=== PATIENT | male | born 1945 | race Caucasian/White ===

== ENCOUNTER 2020-08-14 08:42 | Outpatient (REF) | payer MEDICARE, SELFPAY ==
[2020-08-14 10:07] LABS: Anion Gap 14 (12-20); Blood Urea Nitrogen 17 mg/dL (9-16); Carbon Dioxide 24 mmol/L (22-29); Chloride 105 mmol/L (96-108); Cholesterol 228 mg/dL; Estimated Glomerular Filt Rate 48; Glucose Fasting 128 mg/dL (60-99); HDL Cholesterol 36 mg/dL; LDL Cholesterol Calculated 152 mg/dl; Potassium 4.4 mmol/L (3.3-5.1); Sodium 139 mmol/L (135-145); Triglycerides 203 mg/dL
== END 2020-08-14 08:43 | disposition home or self-care (01) ==
LOC: HO.LAB 08:42
PROVIDERS: PCP Family Medicine; Visit Provider Family Medicine
DX: I10 Essential (primary) hypertension (principal); E78.00 Pure hypercholesterolemia, unspecified; Z82.49 Family history of ischemic heart disease and other diseases of the circulatory system
CPT/HCPCS: 36415; 80051; 80061; 82565; 82947; 84520

== ENCOUNTER 2020-09-04 10:16 | Outpatient (REF) | payer MEDICARE, SELFPAY ==
[2020-09-07 17:12] LABS: DHEA Sulfate 64 mcg/dL (5-253)
[2020-09-09 22:26] LABS: Estradiol Ultra Sensitive 41 pg/mL (< OR = 29)
[2020-09-10 19:50] LABS: Testosterone, Free 90.6 pg/mL (30.0-135.0); Testosterone, Total 530 ng/dL (250-1100)
[2020-09-13 00:26] LABS: Dihydrotestosterone 65 ng/dL (12-65)
== END 2020-09-04 10:17 | disposition home or self-care (01) ==
LOC: HO.LAB 10:16
PROVIDERS: PCP Family Medicine; Visit Provider Physician Assistant
DX: E29.1 Testicular hypofunction (principal)
CPT/HCPCS: 36415; 82627; 82642; 82670; 82681; 84402; 84403

== ENCOUNTER 2023-01-29 09:33 | Outpatient (REF) | payer OTHER, SELFPAY ==
[2023-01-29 14:39] VITALS: BMI 35.4
[2023-01-29 14:40] VITALS: BP 173/76; PULSE 58; RESP 16; TEMP 36.2; O2SAT 96
== END 2023-01-29 09:34 | disposition home or self-care (01) ==
LOC: HO.MS 09:33
PROVIDERS: PCP Internal Medicine; Visit Provider Ophthalmology
PROC: (CPT 66761; principal; 2023-01-29 13:00)
DX: H40.031 Anatomical narrow angle, right eye (principal)
CPT/HCPCS: 66761

== ENCOUNTER 2023-06-18 08:46 | Day surgery (SDC) | payer OTHER, SELFPAY ==
--- NOTE | 2023-06-14 14:48 | P.CONAN_ITS ---
Documented by User: Erin Monson NP 06/15/23 09:10 HPI - Anesthesia Eval Consult details Narrative: 77yo M for Right Cataract Extraction IOL Insertion No previous cataract on record [facility] Past Medical History Medical History (Updated 06/15/23 @ 09:13 by Kirsten Perez, RN) Chronic kidney disease Chronic sinus bradycardia Cataract Retinopathy Glaucoma, narrow-angle Hypertension Hypercholesterolemia Diabetes mellitus Social History Social History Patient Tobacco Use Status: Former Tobacco user Use of substances other than those prescribed or required for medical reasons: No Are you DNR?: No Advance Directives: No Advance Directives Information Provided: Yes Meds Allergies Allergy/AdvReac Type Severity Reaction Status Date / Time No Known Allergies Allergy Verified 06/14/23 14:49 Home Medications ?Medication ?Instructions ?Recorded ?Confirmed ?Last Taken ?Type amlodipine 10 mg tablet 10 mg PO DAILY 06/14/23 06/14/23 Unknown History doxazosin 4 mg tablet 4 mg PO DAILY 06/14/23 06/14/23 Unknown History finasteride 5 mg tablet 5 mg PO DAILY 06/14/23 06/14/23 Unknown History lisinopril 20 mg tablet 20 mg PO DAILY 06/14/23 06/14/23 Unknown History metoprolol succinate 100 mg 100 mg PO DAILY 06/14/23 06/14/23 Unknown History tablet,extended release 24 hr Assessment and Plan Assessment Anesthesia Assessment: Chart Reviewed Documented by User: Otis Webber MD 06/18/23 11:21 [facility] Past Medical History Medical History (Updated 06/15/23 @ 09:13 by Kirsten Perez, GREGORY) Chronic kidney disease Chronic sinus bradycardia Cataract Retinopathy Glaucoma, narrow-angle Hypertension Hypercholesterolemia Diabetes mellitus Family History Family history of problems with anesthesia: No Surgical History History of Problems with Anesthesia: No Social History Social History Patient Tobacco Use Status: Former Tobacco user Use of substances other than those prescribed or required for medical reasons: No Are you DNR?: No Advance Directives: No Advance Directives Information Provided: Yes Meds Allergies Allergy/AdvReac Type Severity Reaction Status Date / Time No Known Allergies Allergy Verified 06/14/23 14:49 Home Medications ?Medication ?Instructions ?Recorded ?Confirmed ?Last Taken ?Type amlodipine 10 mg tablet 10 mg PO DAILY 06/14/23 06/14/23 Unknown History doxazosin 4 mg tablet 4 mg PO DAILY 06/14/23 06/14/23 Unknown History finasteride 5 mg tablet 5 mg PO DAILY 06/14/23 06/14/23 Unknown History lisinopril 20 mg tablet 20 mg PO DAILY 06/14/23 06/14/23 Unknown History metoprolol succinate 100 mg 100 mg PO DAILY 06/14/23 06/14/23 Unknown History tablet,extended release 24 hr Exam Airway Mallampati Class: II TM Dist: >3cm Neck ROM: Full Loose/Missing/Broken Teeth: Yes (4) Heart: rrr Lungs: cta Assessment and Plan Final Anesthetic Review Family History of Problems with Anesthesia: No History of Problems with Anesthesia: No NPO: Yes ASA Class: II Final Preanesthetic Review: No Changes in Pt Med Stat, Meds/Allgs Chart Reviewed, Consent Obtained/Reviewed and Anes Risks/Benef Reviewed Patient Risk: Intermediate Procedure Risk: Low Anesthetic Plan Anesthetic Plan: MAC: Disposition: Standard PACU
[2023-06-18 10:47] VITALS: BMI 37.2
[2023-06-18 10:54] VITALS: BMI 37.2
[2023-06-18 11:13] VITALS: BP 162/62; PULSE 50; RESP 18; TEMP 36.2; O2SAT 95
--- NOTE | 2023-06-18 11:27 | MHC.SHP ---
Pre-Procedural Eval Section A - 24 Hr Update-Section A only Date of Service: 06/18/23 The patient is an INPATIENT: No Changes since office visit: No Cold of Flu in the past 2 weeks, No New Medical Problems, No Changes in Medication and No Patient answered all questions The patient has been examined within 24 hours of the surgical procedure. The History & Physical has been completed within 30 days and I have reviewed it.: Yes Section B - Complete if H&P > 30 days Chief Complaint: Age-related nuclear cataract, right eye Allergies: Allergies Allergy/AdvReac Type Severity Reaction Status Date / Time No Known Allergies Allergy Verified 06/14/23 14:49 Plan Diagnosis/Plan: Unchanged I have reviewed the history and physical and performed a pertinent physical examination on my patient. No changes have occurred unless specified. Time Spent With Patient Time: Total time managing care of this patient today ____ minutes.
[2023-06-18] MEDS: Lactated Ringers 500 ML 50 ML IV (11:42)
[2023-06-18] MEDS: Ketorolac Tromethamine 0.5% Op 10 ML DROPS 1 DROP EYE-RIGHT ×3 (11:43→11:48)
[2023-06-18] MEDS: Cyclopentolate 1 % Ophth Sol 2 ML DRPBTL 1 DROP EYE-RIGHT ×2 (11:43→11:46)
[2023-06-18] MEDS: Tetracaine HCl/PF 0.5% Oph Sol 4 ML DROPS 1 DROP EYE-RIGHT (11:43)
[2023-06-18] MEDS: Phenylephrine HCL 2.5% Oph SoL 2 ML BOTTLE 1 DROP EYE-RIGHT ×3 (11:43→11:48)
[2023-06-18] MEDS: Tropicamide 1 % Ophth Sol 3 ML BTL 1 DROP EYE-RIGHT ×3 (11:46→11:49)
--- NOTE | 2023-06-18 11:58 | P.PCNO_ITS ---
Ophthalmology Procedure Procedure Date of Service: 06/18/23 Ophthalmology Viscoelastic: Healon Duet Dual Pack Pro Ophthalmology Lenses: IOL Acrysof MP - MA60AC (23) Procedure Notes: PREOPERATIVE DIAGNOSIS: Decreased visual acuity right eye secondary to cataract POSTOPERATIVE DIAGNOSIS: Same PROCEDURE: Right cataract extraction with intraocular lens insertion SURGEON: Myron Howell M.D. ANESTHESIA: Topical/MAC ESTIMATED BLOOD LOSS: None COMPLICATIONS: None After obtaining informed consent, the patient was brought to the operating room suite and placed in the supine position. After adequate sedation per anesthesia, topical drops of Tetracaine were given to the right eye. The eye was then prepped and draped in the usual sterile fashion. The operating room microscope was then positioned over the operative eye and a lid speculum placed. A paracentesis was created. Viscoelastic was then instilled into the anterior chamber. A three plane incision was then created temporally, utilizing a 2.85 mm keratome. Capsulotomy forceps were then utilized to create a circular tear capsulotomy. Hydrodissection and hydrodelineation were carried out until adequate mobilization of the nucleus occurred. Phacoemulsification was then utilized to remove the dense central nucl eus followed by removal of the cortical material utilizing the automated aspiration irrigation unit. Viscoelastic was instilled into the posterior capsular bag followed by placement of a posterior chamber intraocular lens without difficulty. The residual Viscoelastic was then removed utilizing the automated IA machine. The wound was checked and found to be watertight. The patient tolerated the procedure well and the lid speculum was removed. Intracameral injection of Vigamox 0.1 mL followed by a subtenon injection of Kenalog-40 0.2 mL were administered. The patient will be seen in the a.m.
[2023-06-18 12:52] VITALS: BP 146/63; PULSE 49; RESP 17; TEMP 36.3; O2SAT 95
== END 2023-06-18 12:55 | disposition home or self-care (01) ==
PROVIDERS: PCP Internal Medicine; Visit Provider Ophthalmology
PROC: (CPT 66985; principal; 2023-06-18 11:20)
DX: H25.11 Age-related nuclear cataract, right eye (principal); H52.4 Presbyopia; H40.011 Open angle with borderline findings, low risk, right eye; H35.033 Hypertensive retinopathy, bilateral; H18.413 Arcus senilis, bilateral; I12.9 Hypertensive chronic kidney disease with stage 1 through stage 4 chronic kidney disease, or unspecified chronic kidney disease; E11.22 Type 2 diabetes mellitus with diabetic chronic kidney disease; N18.9 Chronic kidney disease, unspecified; E78.00 Pure hypercholesterolemia, unspecified; Z79.899 Other long term (current) drug therapy; Z87.891 Personal history of nicotine dependence
CPT/HCPCS: 66984; J2250; J3010; J3301; V2630

== ENCOUNTER 2023-07-02 09:56 | Day surgery (SDC) | payer OTHER, SELFPAY ==
[2023-06-26 13:02] VITALS: BMI 37.2
--- NOTE | 2023-06-29 09:51 | HO.ANESPROP2 ---
Documented by User: Erin Monson NP 06/29/23 09:52 HPI - Anesthesia Eval Consult details Narrative: 77yo M for Left Cataract Extraction IOL Insertion PCP cleared Right eye 06/18/23: Fent 50, Midaz 2 [facility] Past Medical History Medical History (Updated 06/15/23 @ 09:13 by Kirsten Perez, RN) Chronic kidney disease Chronic sinus bradycardia Cataract Retinopathy Glaucoma, narrow-angle Hypertension Hypercholesterolemia Diabetes mellitus Family History Family history of problems with anesthesia: No Surgical History History of Problems with Anesthesia: No Social History Social History Patient Tobacco Use Status: Former Tobacco user Use of substances other than those prescribed or required for medical reasons: Yes Are you DNR?: No Advance Directives: No Advance Directives Information Provided: Yes Meds Allergies Allergy/AdvReac Type Severity Reaction Status Date / Time No Known Allergies Allergy Verified 06/14/23 14:49 Home Medications ?Medication ?Instructions ?Recorded ?Confirmed ?Last Taken ?Type amlodipine 10 mg tablet 10 mg PO DAILY 06/14/23 06/14/23 Unknown History doxazosin 4 mg tablet 4 mg PO DAILY 06/14/23 06/14/23 Unknown History finasteride 5 mg tablet 5 mg PO DAILY 06/14/23 06/14/23 Unknown History lisinopril 20 mg tablet 20 mg PO DAILY 06/14/23 06/14/23 Unknown History metoprolol succinate 100 mg 100 mg PO DAILY 06/14/23 06/14/23 Unknown History tablet,extended release 24 hr Exam Height,Weight and Vital Signs: Height 5 ft 8 in Weight 111.13 kg Assessment and Plan Assessment Anesthesia Assessment: Chart Reviewed Final Anesthetic Review Family History of Problems with Anesthesia: No History of Problems with Anesthesia: No Documented by User: Rashida Welsh MD 07/02/23 10:20 [facility] Past Medical History Medical History (Updated 06/15/23 @ 09:13 by Kirsten Perez RN) Chronic kidney disease Chronic sinus bradycardia Cataract Retinopathy Glaucoma, narrow-angle Hypertension Hypercholesterolemia Diabetes mellitus Social History Social History Patient Tobacco Use Status: Former Tobacco user Use of substances other than those prescribed or required for medical reasons: Yes Are you DNR?: No Advance Directives: No Advance Directives Information Provided: Yes Meds Allergies Allergy/AdvReac Type Severity Reaction Status Date / Time No Known Allergies Allergy Verified 06/14/23 14:49 Home Medications ?Medication ?Instructions ?Recorded ?Confirmed ?Last Taken ?Type amlodipine 10 mg tablet 10 mg PO DAILY 06/14/23 06/14/23 Unknown History doxazosin 4 mg tablet 4 mg PO DAILY 06/14/23 06/14/23 Unknown History finasteride 5 mg tablet 5 mg PO DAILY 06/14/23 06/14/23 Unknown History lisinopril 20 mg tablet 20 mg PO DAILY 06/14/23 06/14/23 Unknown History metoprolol succinate 100 mg 100 mg PO DAILY 06/14/23 06/14/23 Unknown History tablet,extended release 24 hr Exam Airway Mallampati Class: III TM Dist: >3cm Neck ROM: Full Heart: rrr Lungs: cta Assessment and Plan Assessment Anesthesia Assessment: Anesthesia Plan Discussed Final Anesthetic Review NPO: Yes ASA Class: II Final Preanesthetic Review: No Changes in Pt Med Stat, Meds/Allgs Chart Reviewed and Consent Obtained/Reviewed Patient Risk: Low Procedure Risk: Low Anesthetic Plan Anesthetic Plan: MAC: Disposition: Standard PACU
[2023-07-02 09:59] VITALS: BMI 37.2
[2023-07-02] MEDS: Tetracaine HCl/PF 0.5% Oph Sol 4 ML DROPS 1 DROP EYE-LEFT (10:10)
[2023-07-02] MEDS: Cyclopentolate 1 % Ophth Sol 2 ML DRPBTL 1 DROP EYE-LEFT ×3 (10:11→10:28)
[2023-07-02] MEDS: Tropicamide 1 % Ophth Sol 3 ML BTL 1 DROP EYE-LEFT ×3 (10:13→10:30)
[2023-07-02] MEDS: Ketorolac Tromethamine 0.5% Op 10 ML DROPS 1 DROP EYE-LEFT ×3 (10:15→10:32)
[2023-07-02] MEDS: Phenylephrine HCL 2.5% Oph SoL 2 ML BOTTLE 1 DROP EYE-LEFT ×3 (10:18→10:34)
[2023-07-02] MEDS: Lactated Ringers 500 ML 50 ML IV (10:19)
[2023-07-02 10:34] VITALS: BP 174/58; PULSE 51; RESP 16; TEMP 36.1; O2SAT 97
[2023-07-02 11:55] VITALS: BP 152/57; PULSE 48; RESP 12; TEMP 36.2; O2SAT 93
--- NOTE | 2023-07-04 08:26 | MHC.SHP ---
Pre-Procedural Eval Section A - 24 Hr Update-Section A only Date of Service: 07/02/23 The patient is an INPATIENT: No Changes since office visit: No Cold of Flu in the past 2 weeks, No New Medical Problems, No Changes in Medication and No Patient answered all questions The patient has been examined within 24 hours of the surgical procedure. The History & Physical has been completed within 30 days and I have reviewed it.: Yes Section B - Complete if H&P > 30 days Chief Complaint: Age-related nuclear cataract, left eye Allergies: Allergies Allergy/AdvReac Type Severity Reaction Status Date / Time No Known Allergies Allergy Verified 06/14/23 14:49 Plan Diagnosis/Plan: Unchanged I have reviewed the history and physical and performed a pertinent physical examination on my patient. No changes have occurred unless specified. Time Spent With Patient Time: Total time managing care of this patient today ____ minutes.
--- NOTE | 2023-07-04 08:27 | HO.PNOPHT ---
Ophthalmology Procedure Procedure Date of Service: 07/02/23 Ophthalmology Viscoelastic: Healon Duet Dual Pack Pro Ophthalmology Lenses: IOL Acrysof MP - MA60AC (23.5) Procedure Notes: PREOPERATIVE DIAGNOSIS: Decreased visual acuity left eye secondary to cataract POSTOPERATIVE DIAGNOSIS: Same PROCEDURE: Left cataract extraction with intraocular lens insertion SURGEON: Myron Howell M.D. ANESTHESIA: Topical/MAC ESTIMATED BLOOD LOSS: None COMPLICATIONS: None After obtaining informed consent, the patient was brought to the operation room suite and placed in the supine position. After adequate sedation per anesthesia, topical drops of Tetracaine were given to the left eye. The eye was then prepped and draped in the usual sterile fashion. The operating room microscope was then positioned over the operative eye and a lid speculum placed. A paracentesis was created. Viscoelastic was then instilled into the anterior chamber. A three plane incision was then created temporally, utilizing a 2.85 mm keratome. Capsulotomy forceps were then utilized to create a circular tear capsulotomy. Hydrodissection and hydrodelineation were carried out until adequate mobilization of the nucleus occurred. Phacoemulsification was then utilized to remove the dense central nucleus followed by removal of the cortical material utilizing the automated aspiration irrigation unit. Viscoat elastic was instilled into the posterior capsular bag followed by placement of a posterior chamber intraocular lens without difficulty. The residual Viscoat elastic was then removed utilizing the automated IA machine. The wound was check and found to be watertight. The patient tolerated the procedure well and the lid speculum was removed. Intracameral injection of Vigamox 0.1 mL followed by a subtenon injection of Kenalog-40 0.2 mL were administered. The patient will be seen in the a.m.
== END 2023-07-02 12:24 | disposition home or self-care (01) ==
PROVIDERS: PCP Internal Medicine; Visit Provider Ophthalmology
PROC: (CPT 66985; principal; 2023-07-02 07:30)
DX: H25.12 Age-related nuclear cataract, left eye (principal); H52.4 Presbyopia; H40.213 Acute angle-closure glaucoma, bilateral; H35.033 Hypertensive retinopathy, bilateral; H18.413 Arcus senilis, bilateral; E11.22 Type 2 diabetes mellitus with diabetic chronic kidney disease; I12.9 Hypertensive chronic kidney disease with stage 1 through stage 4 chronic kidney disease, or unspecified chronic kidney disease; N18.9 Chronic kidney disease, unspecified; E78.00 Pure hypercholesterolemia, unspecified; Z79.899 Other long term (current) drug therapy; Z87.891 Personal history of nicotine dependence
CPT/HCPCS: 66984; J2250; J3010; J3301; V2630

== ENCOUNTER 2024-06-04 13:56 | Outpatient (AMB) | payer MEDICARE, SELFPAY ==
--- NOTE | 2024-06-04 14:04 | MHC.PC.OV ---
Vital Signs 06/04/24 14:05 Height 5 ft 8 in Weight 223 lb BMI 33.9 BP 146/86 H Respiration 14 Pulse 60 Pulse Source Pulse Oximeter Temp 97.7 F Temp Source Temporal Artery Scan Pulse Oximetry (%) 97 Oxygen Delivery Method Room Air Intake Visit Reasons: 9 month follow up Out Of Town Collection Clerk Required: No Accompanied by: Self / Same As Patient Allergies Seasonal Allergies Allergy (Mild, Verified 06/04/24 14:53) Unknown Medication List - Last Reconciled 06/04/24 by Ginny Peter PA-C amlodipine 10 mg PO DAILY doxazosin 4 mg PO DAILY finasteride 5 mg PO DAILY lisinopril 20 mg PO DAILY metoprolol succinate ER 100 mg PO DAILY semaglutide (Ozempic) mg subcut Tobacco use date assessed: 06/04/24 Fall risk assessment: 2 + Falls in past year Last assessed Fall Risk: 06/04/24 Dental Screening Dental Screen Date: 06/04/24 Did you have a dental visit in the last 12 months?: Yes Did you have a dental problem in the last 6 months where you did not have access to dental care?: No Was dental information given to patient?: Patient has dentist HPI 9 month follow up HPI Details The patient is a 78-year-old male presenting for the establishment of care and evaluation of chronic medical conditions including chronic kidney disease. He was a patient of Dr. Louise who is currently retiring. He reports a longstanding condition of chronic kidney disease, attributing potential causes to herbal constipation remedies and intermittent diarrhea. Also, the patient has experienced chronic constipation, managed with magnesium, [place], and MiraLAX, which he worries might contribute to the kidney issues. 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 The patient has a known heart murmur, present since childhood, though previously undetected by some clinicians. Regarding metabolic management, Type 2 diabetes mellitus is listed, with medical control established via Ozempic; he is maintaining awareness of dietary influences on glycemic levels, noting a recent rise in unhealthy diet choices. The recent A1c is recorded at 5.8. Neuropathy is present, with the patient desiring non-pharmaceutical management strategies, expressing hesitance towards gabapentin due to its reputation and potential insulin-like paradoxes. The presence of earwax buildup was also significant, impacting auditory capabilities addressed during the visit. 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 - Substance use: History of smoking pot, cigarettes, and cigars. - Family status: for almost 37 years; mentioned having been twice before. - Nutritional habits: Recent decline in dietary behavior, acknowledged eating insufficiently. - Functional status: Experiences chronic constipation potentially impacting energy levels. [facility] Medical History (Updated 06/04/24 @ 16:14 by Ginny Peter PA-C) Cerumen impaction Low testosterone Chronic constipation Establishing care with new doctor, encounter for Heart murmur Chronic kidney disease Chronic sinus bradycardia Cataract Retinopathy Glaucoma, narrow-angle Hypertension Hypercholesterolemia Diabetes mellitus Surgical History History of colonoscopy Family History Mother No problems noted. Father Diabetes Cardiovascular disease Heart problem Social History Housing: House Alcohol intake: current Alcohol intake frequency: does not drink Patient Tobacco Use Status: Former Tobacco user service: No Current occupational status: retired Cognitive needs: No Hearing needs: No Vision needs: No Questionnaire PHQ-9 Over the last 2 weeks, how often have you been bothered by any of the following problems? 1. Little interest or pleasure in doing things: not at all 2. Feeling down, depressed, or hopeless: not at all 3. Trouble falling or staying asleep, or sleeping too much: not at all 4. Feeling tired or having little energy: not at all 5. Poor appetite or overeating: not at all 6. Feeling bad about yourself - or that you are a failure or have let yourself or your family down: not at all 7. Trouble concentrating on things, such as reading the newspaper or watching television: not at all 8. Moving or speaking so slowly that other people could have noticed. Or the opposite - being so fidgety or restless that you have been moving around a lot more than usual: not at all 9. Thoughts that you would be better off or of hurting yourself in some way: not at all Total score: 0 Depression Screening Interpretation: Negative Depression Screening Done: Yes 88167 - PHQ-9 Billing: Yes Source: Developed by Drs. Matthew Stein, Jennifer Davis, Deshawn Perrin and colleagues, with an educational monique from [employer]. Thrive Questionnaire Date Thrive assessed: 06/04/24 I am a: Patient What is your living situation today?: I have a steady place to live Within the past 12 months, did the food you bought not last and you didn't have the money to get more?: Never true Within the past 12 months, did you worry whether your food would run out before you got money to buy more?: Never true Do you have trouble paying for medicines?: No Do you have trouble getting transportation to medical appointments?: No Do you have trouble paying your heating and electricity bill?: No Do you have trouble taking care of your child, family member or friend?: No Do you have trouble with day-to-day activities such as bathing, preparing meals, shopping, managing finances, etc.?: No Are you currently unemployed and looking for a job?: No Are you interested in more education?: No Please select the resources that you would like help with: None THRIVE Score: 0 AUDIT C Alcohol Use Questionnaire (AUDIT-C) 1. How often do you have a drink containing alcohol?: Never 3. How often do you have six or more drinks on one occasion?: Never Total Score: 0 Score Reviewed/Action Taken: No CHELLY-7 AMB Questionnaire CHELYL-7 Date CHELLY - 7 assessed: 06/04/24 Feeling nervous, anxious, or on edge: 0 = Not at all Not being able to stop or control worryin = Not at all Worrying too much about different things: 0 = Not at all Trouble relaxin = Not at all Being so restless that it is hard to sit still: 0 = Not at all Becoming easily annoyed or irritable: 0 = Not at all Feeling afraid as if something awful might happen: 0 = Not at all Total CHELLY-7 score (0-4 normal; 5-9 mild; 10-14 moderate; 15-21 severe): 0 Source: Developed by Estiven Garciaet B.W. Ryan, Deshawn Perrin and colleagues, with an educational monique from [employer]. CHELLY-7 Assessment Billing CHELLY-7 Assessment Tool: CHELLY-7 Assessment 71359 Review of Systems Const Details: - Cardiovascular: Reports heart murmur; denies any new chest pain. - Gastrointestinal: Reports chronic constipation. - Musculoskeletal: Denies current issues. - Neurological: Reports neuropathy. - Endocrine: Reports type 2 diabetes mellitus; denies any recent hypoglycemia. - General/Constitutional: Denies significant weight loss or gain over a short period. - Ears, Nose, Mouth: Reports earwax impaction leading to hearing difficulty. Physical exam (Primary Care) Vital Signs: Last Vital Signs Temp 97.7 F 06/04/24 14:05 Pulse 60 06/04/24 14:05 Resp 14 06/04/24 14:05 BP 146/86 H 06/04/24 14:05 Pulse Ox 97 06/04/24 14:05 Oxygen Delivery Method Room Air 06/04/24 14:05 Care Plan Goal for BP management: <130/90 BMI result Body Mass Index 33.9 BMI Assessment/Plan discussion: High BMI High, discussed plan: lifestyle, weight reduction, dietary, physical activity and alcohol moderation Tobacco/Smoking Status: Tobacco use Status Tobacco use date assessed 06/04/24 06/04/24 14:08 Patient Tobacco Use Status Former Tobacco user 06/04/24 14:45 PHQ-9: PHQ-9 Score PHQ-9: Total score 0 06/04/24 14:53 Depression Screening Interpretation: Negative Thrive Assessment: Date of Thrive Assessment Date Thrive assessed 06/04/24 06/04/24 14:08 Const Other: Appearance: Alert. Oriented X3. No acute distress. Head: Normal external exam. Normocephalic. Atraumatic. Eyes: Pupils are equal, round, and reactive to light. Extraocular movements intact. Conjunctiva and sclera normal. Eyelids normal. Ears: External auditory canal normal. Tympanic membranes normal. Cerumen impaction bilaterally. Earwax professionally removed, ears completely clear status post cerumen removal. Throat: Pharynx normal. Uvula midline. Moist mucous membranes. Neck: Normal inspection. Neck supple. Full range of motion. No adenopathy. Thyroid Normal. No meningeal signs. No neck mass noted. Cardiovascular: Normal heart rate and rhythm. Heart sound normal. Heart murmur noted. Pulses normal throughout. Respiratory: No respiratory distress. Painless inspiration. Breath sounds normal. Lungs noted to be chronically wet. No wheezes/rales/rhonchi noted. Chest nontender. No accessory muscle usage noted or decreased air movement noted. Abdomen: Soft and nontender. Bowel sounds normal in all 4 quadrants. No distention noted. No organomegaly noted. No visible injury noted. Back: No costovertebral angle tenderness. Full range of motion noted. Skin: Skin warm and dry. Normal skin color. Normal skin turgor. No rashes/lesions/lacerations noted. Extremities: No lower extremity edema. Extremities exhibit normal range of motion. Extremities nontender. Neuro: Oriented X 3. No motor deficit. No sensory deficit. Reflexes normal. Office Procedures Cerumen Removal Details: Status post cerumen impaction patient tolerated procedure well. No complications. Tympanic membranes intact not perforated after procedure. Patient's hearing has improved significantly. From which ear canal was the cerumen removed: bilateral Removal: irrigation Notes: patient tolerated procedure well, no complications and ear canal clear [id number] Irrigation/Lavage Results AMB Hemoglobin A1c AMB Hemoglobin A1c 5.8 % Last Edit by KIMO Hamilton on 06/04/24 15:15 Results Reviewed Results Reviewed: - Labs: Last hemoglobin A1c recorded at 5.8; blood tests and hormone levels recommended. Coding Level of Care Code New Pt Level 4 (26022) Complex EM visit Add On G2211 Diagnoses Establishing care with new doctor, encounter for Z76.89 Diabetes mellitus E11.9 Hypercholesterolemia E78.00 Hypertension I10 Chronic sinus bradycardia R00.1 Chronic kidney disease N18.9 Heart murmur R01.1 Chronic constipation K59.09 Low testosterone R79.89 Cerumen impaction H61.20 CPT Codes Office Procedure - CPT: 19759-Jty Irrigation/Lavage ([id number]) Additional Codes PHQ-9 - 70809 - PHQ-9 Billing: Yes ([id number]) CHELLY-7 Assessment Billing - CHELLY-7 Assessment Tool: CHELLY-7 Assessment 39833 ([id number]) Assessment & Plan Assessment & Plan (1) Establishing care with new doctor, encounter for: Code(s): Z76.89 - Persons encountering health services in other specified circumstances Category: Medical (2) Diabetes mellitus: Code(s): E11.9 - Type 2 diabetes mellitus without complications Category: Medical Plan: Maint[facility] while considering dietary choices? impact on glycemic levels with regular A1c monitoring. Condition is chronic and stable continue to monitor. (3) Hypercholesterolemia: Code(s): E78.00 - Pure hypercholesterolemia, unspecified Category: Medical Plan: Controlled with diet and exercise. Condition is chronic and stable continue to monitor. (4) Hypertension: Code(s): I10 - Essential (primary) hypertension Category: Medical Plan: Blood pressure goal less than 130/90. Blood pressure elevated today. Will increase the patient's lisinopril from 20 mg to 40 mg daily. Patient to continue amlodipine 10 mg daily and metoprolol extended release 100 mg daily. Patient is return in 1 month with blood pressure diary to reassess blood pressure. Condition is chronic and stable continue to monitor. (5) Chronic sinus bradycardia: Code(s): R00.1 - Bradycardia, unspecified Category: Medical Plan: Patient noted to have heart murmur which has not been evaluated. Will refer to Cardiology. Condition is chronic and stable continue to monitor. (6) Chronic kidney disease: Code(s): N18.9 - Chronic kidney disease, unspecified Category: Medical Plan: Will repeat labs. Condition is chronic and stable continue to monitor. (7) Heart murmur: Code(s): R01.1 - Cardiac murmur, unspecified Category: Medical Plan: Patient noted to have heart murmur which has not been evaluated. Will refer to Cardiology. Condition is chronic and stable continue to monitor. (8) Chronic constipation: Code(s): K59.09 - Other constipation Category: Medical Plan: Patient uses [id number] medication. Condition is chronic and stable will continue to monitor. (9) Low testosterone: Code(s): R79.89 - Other specified abnormal findings of blood chemistry Category: Medical Plan: Patient utilizes testosterone daily. Will refer to Urology and order testosterone levels. Condition is chronic and stable continue to monitor. (10) Cerumen impaction: Code(s): H61.20 - Impacted cerumen, unspecified ear Category: Medical Plan: Efficacy of ear irrigation highlighted; implemented a regular peroxide maintenance routine to prevent recurrence. Condition has improved and is stable at this time will continue to monitor. Plan Plan Patient was informed and verbally consented to the use of an ambient scribe for clinic note documentation during this visit. 1. Chronic Kidney Disease Monitoring kidney function through blood work and maintaining awareness of dietary impacts was advised. Emphasis on efficient hydration and careful consideration of constipation treatment discussed. 2. Sinus Bradycardia Non-problematic sinus bradycardia, possibly attributed to historical athleticism, will remain under observation aligned with medication and activity levels. 3. Heart Murmur Significant heart murmur noted, necessitating cardiological referral for further evaluation and management, ensuring preventative monitoring and progress assessment. 4. Constipation Continued current home remedy usage with added dietary recommendations for fiber and fluids to alleviate symptoms without exacerbating kidney function. 5. Type 2 Diabetes Mellitus Maintained ongoing management through Ozempic while considering dietary choices? impact on glycemic levels with regular A1c monitoring. 6. Neuropathy Emphasized non-pharmaceutical strategies and potential physical therapy engagement while acknowledging ongoing symptom management needs. 7. Earwax Impaction Efficacy of ear irrigation highlighted; implemented a regular peroxide maintenance routine to prevent recurrence. During the consultation, we discussed the likelihood of attributing kidney function concerns to prolonged use of herbal constipation remedies like [place]. Metabolic management for diabetes alongside lifestyle modification was outlined. Sinus bradycardia's benign nature was noted in light of the patient's athletic history. The prominent heart murmur prompted necessary cardiology referral, serving as a preventive measure. Encouragement of hydration, dietary fiber, and manageable interventions provided, understanding patient preference against gabapentin for neuropathy. Earwax impaction was topically resolved, with at-home care guidance given to avert return incidences. Orders: Orders Complete Blood Count Auto Diff Today Z00.00 - Encounter for general adult medical examination without abnormal findings Comprehensive [place]. Panel Fast Today Z00.00 - Encounter for general adult medical examination without abnormal findings Hemoglobin A1c Today Z00.00 - Encounter for general adult medical examination without abnormal findings Liver Panel Today Z00.00 - Encounter for general adult medical examination without abnormal findings Magnesium Today Z00.00 - Encounter for general adult medical examination without abnormal findings Vitamin B12 and Folate Today Z00.00 - Encounter for general adult medical examination without abnormal findings Vitamin D 25-OH Total Today Z00.00 - Encounter for general adult medical examination without abnormal findings AMB Hemoglobin A1c Today E11.9 - Type 2 diabetes mellitus without complications C Reactive Protein Today Z00.00 - Encounter for general adult medical examination without abnormal findings Erythrocyte Sedimentation Rate Today Z00.00 - Encounter for general adult medical examination without abnormal findings Testosterone, Total Today Z00.00 - Encounter for general adult medical examination without abnormal findings Lipid Panel Today Z00.00 - Encounter for general adult medical examination without abnormal findings TSH reflex Free T4 Today Z00.00 - Encounter for general adult medical examination without abnormal findings PSA,Total (Free>4and<10) Today Z00.00 - Encounter for general adult medical examination without abnormal findings Dihydrotestosterone Today Z76.89 - Persons encountering health services in other specified circumstances DHEA Sulfate Today R79.89 - Other specified abnormal findings of blood chemistry, Z76.89 - Persons encountering health services in other specified circumstances Referrals Cardiology Referral E78.00 - Pure hypercholesterolemia, unspecified, I10 - Essential (primary) hypertension, R00.1 - Bradycardia, unspecified, R01.1 - Cardiac murmur, unspecified Urology Referral R79.89 - Other specified abnormal findings of blood chemistry Medications: Changed From lisinopril 20 mg PO DAILY To lisinopril 40 mg PO DAILY 90 tabs 1RF Patient Instructions: - Continue current diabetes and blood pressure medications as prescribed. - Maintain fiber intake and hydration levels to alleviate constipation. - Utilize peroxide weekly for ear care to prevent wax buildup. - Monitor your blood pressure daily, particularly two hours post-medication. - Attend appointments with referred specialists such as cardiology. - Schedule routine blood work, including A1c testing, at [place] or equivalent labs for accurate monitoring. - Consult emergency care if experiencing severe or unexpected symptoms.
[2024-06-04 14:05] VITALS: BP 146/86; PULSE 60; RESP 14; TEMP 36.5; O2SAT 97; BMI 33.9
== END 2024-06-04 15:30 | disposition home or self-care (01) ==
LOC: HO.HMCSH 13:56
PROVIDERS: PCP Internal Medicine; Visit Provider Physician Assistant Medical
DX: I12.9 Hypertensive chronic kidney disease with stage 1 through stage 4 chronic kidney disease, or unspecified chronic kidney disease (principal); E11.9 Type 2 diabetes mellitus without complications; N18.9 Chronic kidney disease, unspecified; Z76.89 Persons encountering health services in other specified circumstances; E78.00 Pure hypercholesterolemia, unspecified; H61.23 Impacted cerumen, bilateral; R00.1 Bradycardia, unspecified; R01.1 Cardiac murmur, unspecified; K59.09 Other constipation; R79.89 Other specified abnormal findings of blood chemistry

== ENCOUNTER → 2024-06-04 13:56 | Outpatient (BNVA) | payer MEDICARE, SELFPAY | PROVIDERS: PCP Internal Medicine; Visit Provider Physician Assistant Medical | DX: E11.22 Type 2 diabetes mellitus with diabetic chronic kidney disease (principal); E11.40 Type 2 diabetes mellitus with diabetic neuropathy, unspecified; N18.9 Chronic kidney disease, unspecified; E78.00 Pure hypercholesterolemia, unspecified; I12.9 Hypertensive chronic kidney disease with stage 1 through stage 4 chronic kidney disease, or unspecified chronic kidney disease; R00.1 Bradycardia, unspecified; R01.1 Cardiac murmur, unspecified; K59.09 Other constipation; R79.89 Other specified abnormal findings of blood chemistry; H61.23 Impacted cerumen, bilateral | CPT/HCPCS: 69209; 83036; 96127; 99202 ==

== ENCOUNTER 2024-06-09 09:45 | Outpatient (REF) | payer MEDICARE, SELFPAY ==
[2024-06-09 10:30] LABS: MANUAL DIFF FLAG NO
[2024-06-09 12:00] LABS: Estimated Average Glucose 120 mg/dL; Hemoglobin A1C 140.5296 umol/L; Hemoglobin A1c % 5.8 % (<6.0); Total Hemoglobin (HGBA1C) 3504.2137 umol/L
[2024-06-09 12:13] LABS: PSA,Total (Free>4and<10) 0.28 ng/mL (0.00-4.00)
[2024-06-09 12:17] LABS: Alanine Aminotransferase 18 U/L (0-40); Albumin Level 4.3 g/dL (3.5-5.0); Alkaline Phosphatase 75 U/L (39-117); Anion Gap 12 (12-20); Aspartate Amino Transferase 19 U/L (5-37); Bilirubin Direct 0.1 mg/dL (0.0-0.5); Bilirubin Total 0.3 mg/dL (0.0-1.0); Blood Urea Nitrogen 18 mg/dL (9-16); C Reactive Protein 0.74 mg/dL (< or = 0.50); Calcium 9.5 mg/dL (8.4-10.2); Carbon Dioxide 27 mmol/L (22-29); Chloride 104 mmol/L (96-108); Cholesterol 211 mg/dL (<200); Estimated Glomerular Filt Rate 51; Glucose Fasting 100 mg/dL (60-99); HDL Cholesterol 41 mg/dL (>40); LDL Cholesterol Calculated 133 mg/dL (<100); Magnesium 2.5 mg/dL (1.6-2.6); Potassium 4.5 mmol/L (3.3-5.1); Sodium 138 mmol/L (135-145); Total Protein 7.8 g/dL (6.5-8.0); Triglycerides 186 mg/dL (<150)
[2024-06-09 12:20] LABS: Basophils Percent Auto 0.5 % (0-2); Eosinophils Absolute Auto 0.1 X10*3/uL (0.0-0.4); Hematocrit 40.3 % (42.0-52.0); Hemoglobin 13.1 g/dl (14.0-18.0); Imm Gran Abs Auto 0.03 X10*3/uL (0.00-0.03); Imm Gran Pct Auto 0.4 % (0.0-0.4); Lymphocytes Absolute Auto 1.7 X10*3/uL (1.2-4.9); Lymphocytes Percent Auto 21.3 % (20-40); Mean Corpuscular HGB Conc 32.5 g/dl (31.0-36.0); Mean Corpuscular Volume 92.4 fL (80.0-98.0); Mean Platelet Volume 10.5 fL (9.4-12.4); Monocytes Absolute Auto 0.7 X10*3/uL (0.1-1.2); Monocytes Percent Auto 8.6 % (2-11); Neutrophils Absolute Auto 5.3 x10*3/uL (2.0-8.3); Neutrophils Percent Auto 68.2 % (45-73); Platelet Count 261 X10*3/uL (160-400); Red Blood Count 4.36 X10*6/uL (4.60-5.80); Red Cell Distribution Width 14.1 % (11.0-16.0); White Blood Count 7.8 X10*3/uL (4.8-10.8)
[2024-06-09 12:27] LABS: Folate 7.9 ng/mL (> or = 4.0); Vitamin B12 309 pg/mL (200-900)
[2024-06-09 12:35] LABS: TSH reflex Free T4 2.07 uIU/mL (0.32-4.0); Vitamin D 25-OH Total 102.3 ng/mL (>30)
[2024-06-09 13:05] LABS: Erythrocyte Sedimentation Rate 31 MM/HR (0-15)
[2024-06-10 03:23] LABS: DHEA Sulfate 87 mcg/dL (3-225)
[2024-06-12 13:44] LABS: Testosterone, Total 189 ng/dL (250-1100)
[2024-06-13 04:08] LABS: Dihydrotestosterone <5 ng/dL (12-65)
== END 2024-06-09 09:46 | disposition home or self-care (01) ==
LOC: HO.LAB 09:45
PROVIDERS: PCP Physician Assistant Medical; Visit Provider Physician Assistant Medical
DX: Z00.00 Encounter for general adult medical examination without abnormal findings (principal); Z76.89 Persons encountering health services in other specified circumstances; R79.89 Other specified abnormal findings of blood chemistry; Z12.5 Encounter for screening for malignant neoplasm of prostate
CPT/HCPCS: 36415; 80053; 80061; 80076; 82248; 82306; 82607; 82627; 82642; 82746; 83036; 83735; 84153; 84403; 84443; 85025; 85652; 86140

== ENCOUNTER 2024-06-30 13:11 | Outpatient (AMB) | payer MEDICARE, SELFPAY ==
[2024-06-30 13:21] VITALS: BP 136/64; PULSE 62; RESP 16; TEMP 36.6; O2SAT 94; BMI 34.1
--- NOTE | 2024-06-30 13:21 | A.OFFPC_ITS ---
Vital Signs 06/30/24 13:21 Height 5 ft 8 in Weight 224 lb BMI 34.1 BP 136/64 Respiration 16 Pulse 62 Pulse Source Pulse Oximeter Temp 97.8 F Temp Source Temporal Artery Scan Pulse Oximetry (%) 94 Oxygen Delivery Method Room Air Intake Visit Reasons: 1 month f/u Mold Builder Required: No Accompanied by: Self / Same As Patient Allergies Seasonal Allergies Allergy (Mild, Verified 06/30/24 15:04) Unknown Medication List - Last Reconciled 06/30/24 by Ginny Peter PA-C amlodipine 10 mg PO DAILY doxazosin 4 mg PO DAILY finasteride 5 mg PO DAILY lisinopril 40 mg PO DAILY metoprolol succinate ER 100 mg PO DAILY semaglutide (Ozempic) mg subcut Tobacco use date assessed: 06/04/24 Dental Screening Dental Screen Date: 06/04/24 HPI 1 month f/u HPI Details The patient is a 78-year-old male presenting for management of chronic conditions, including hypertension, diabetes, and heart murmur evaluation. He reports a two-decade history of hypertension, now well-managed with an increased dosage of lisinopril achieving pressures of 120/60 mmHg. Concurrently, type 2 diabetes has been consistent with prediabetic levels managed through the Ozempic weekly.. The heart murmur, a congenital condition, is under ongoing scrutiny for cardiovascular implications, particularly concerning calcium build-up in arteries. The patient maintains an active approach in managing these conditions, incorporating both traditional and alternative therapies, and has expressed concerns about certain medications impacting his overall health. He also has a diagnosis of hyperlipidemia but seeks alternatives to statins due to concerns over diabetes risks. The patient's established use of testosterone therapy for hypogonadism has brought recent challenges with reduced potency of his supply, prompting the need for refills before his specialist consultation. Social History - Considers [id number] on health conditions and is proactive in self- research. - Actively involved in dietary supplemen t management for blood sugar and cholesterol. - Shows interest and curiosity in altern ative therapies for cardiovascular healt h. - Regularly schedules specialist appoint ments for ongoing health management. [facility] Medical History (Updated 06/30/24 @ 15:07 by Ginny Peter PA-C) Hypogonadism male Elevated triglycerides with high cholesterol Hyperlipidemia LDL goal <100 Cerumen impaction Low testosterone Chronic constipation Establishing care with new doctor, encounter for Heart murmur Chronic kidney disease Chronic sinus bradycardia Cataract Retinopathy Glaucoma, narrow-angle Hypertension Hypercholesterolemia Diabetes mellitus Surgical History History of colonoscopy Family History Mother No problems noted. Father Diabetes Cardiovascular disease Heart problem Social History Housing: House Alcohol intake: current Alcohol intake frequency: does not drink Patient Tobacco Use Status: Former Tobacco user service: No Current occupational status: retired Cognitive needs: No Hearing needs: No Vision needs: No Questionnaire PHQ-9 Over the last 2 weeks, how often have you been bothered by any of the following problems? 1. Little interest or pleasure in doing things: not at all 2. Feeling down, depressed, or hopeless: not at all 3. Trouble falling or staying asleep, or sleeping too much: not at all 4. Feeling tired or having little energy: not at all 5. Poor appetite or overeating: not at all 6. Feeling bad about yourself - or that you are a failure or have let yourself or your family down: not at all 7. Trouble concentrating on things, such as reading the newspaper or watching television: not at all 8. Moving or speaking so slowly that other people could have noticed. Or the opposite - being so fidgety or restless that you have been moving around a lot more than usual: not at all 9. Thoughts that you would be better off or of hurting yourself in some way: not at all Total score: 0 Depression Screening Interpretation: Negative Depression Screening Done: Yes 13464 - PHQ-9 Billing: Yes Source: Developed by Drs. Matthew Stein, Jennifer Davis, Deshawn Perrin and colleagues, with an educational monique from [employer]. Thrive Questionnaire Date Thrive assessed: 06/04/24 I am a: Patient What is your living situation today?: I have a steady place to live Within the past 12 months, did the food you bought not last and you didn't have the money to get more?: Never true Within the past 12 months, did you worry whether your food would run out before you got money to buy more?: Never true Do you have trouble paying for medicines?: No Do you have trouble getting transportation to medical appointments?: No Do you have trouble paying your heating and electricity bill?: No Do you have trouble taking care of your child, family member or friend?: No Do you have trouble with day-to-day activities such as bathing, preparing meals, shopping, managing finances, etc.?: No Are you currently unemployed and looking for a job?: No Are you interested in more education?: No Please select the resources that you would like help with: None THRIVE Score: 0 AUDIT C Alcohol Use Questionnaire (AUDIT-C) 1. How often do you have a drink containing alcohol?: Never 3. How often do you have six or more drinks on one occasion?: Never Total Score: 0 Score Reviewed/Action Taken: No CHELLY-7 AMB Questionnaire CHELLY-7 Date CHELLY - 7 assessed: 06/04/24 Feeling nervous, anxious, or on edge: 0 = Not at all Not being able to stop or control worryin = Not at all Worrying too much about different things: 0 = Not at all Trouble relaxin = Not at all Being so restless that it is hard to sit still: 0 = Not at all Becoming easily annoyed or irritable: 0 = Not at all Feeling afraid as if something awful might happen: 0 = Not at all Total CHELLY-7 score (0-4 normal; 5-9 mild; 10-14 moderate; 15-21 severe): 0 Source: Developed by Drs. Matthew Stein, Jennifer Davis, Deshawn Perrin and colleagues, with an educational monique from [employer]. CHELLY-7 Assessment Billing CHELLY-7 Assessment Tool: CHELLY-7 Assessment 43241 Review of Systems Const Details: - Cardiovascular: Reports stable blood pressure with current medication adjustments. - Endocrine: Reports diabetes in prediabetic range; denies significant symptoms. - Musculoskeletal: Reports using testosterone therapy for 15 years, with concerns about supply. - General: Denies current discomforts related to his heart murmur. Physical exam (Primary Care) Vital Signs: Last Vital Signs Temp 97.8 F 06/30/24 13:21 Pulse 62 06/30/24 13:21 Resp 16 06/30/24 13:21 BP 136/64 06/30/24 13:21 Pulse Ox 94 06/30/24 13:21 Oxygen Delivery Method Room Air 06/30/24 13:21 Care Plan Goal for BP management: <140/90 at Goal BMI result Body Mass Index 34.1 BMI Assessment/Plan discussion: High BMI High, discussed plan: lifestyle, weight reduction, dietary, physical activity and alcohol moderation Tobacco/Smoking Status: Tobacco use Status Tobacco use date assessed 06/04/24 06/30/24 13:30 Patient Tobacco Use Status Former Tobacco user 06/30/24 13:30 PHQ-9: PHQ-9 Score PHQ-9: Total score 0 06/30/24 13:30 Depression Screening Interpretation: Negative Thrive Assessment: Date of Thrive Assessment Date Thrive assessed 06/04/24 06/30/24 13:30 Const Other: Appearance: Alert. Oriented X3. No acute distress. Head: Normal external exam. Normocephalic. Atraumatic. Eyes: Pupils are equal, round, and reactive to light. Extraocular movements intact. Conjunctiva and sclera normal. Eyelids normal. Ears: External auditory canal normal. Tympanic membranes normal. Throat: Pharynx normal. Uvula midline. Moist mucous membranes. Neck: Normal inspection. Neck supple. Full range of motion. No adenopathy. Thyroid Normal. No meningeal signs. No neck mass noted. Cardiovascular: Heart murmur present. Normal heart rate and rhythm. Heart sound abnormal due to murmur. Pulses normal throughout. Respiratory: No respiratory distress. Painless inspiration. Breath sounds normal. No wheezes/rales/rhonchi noted. Chest nontender. No accessory muscle usage noted or decreased air movement noted. Abdomen: Soft and nontender. Bowel sounds normal in all 4 quadrants. No distention noted. No organomegaly noted. No visible injury noted. Back: No costovertebral angle tenderness. Full range of motion noted. Skin: Skin warm and dry. Normal skin color. Normal skin turgor. No rashes/lesions/lacerations noted. Extremities: No lower extremity edema. Extremities exhibit normal range of motion. Extremities nontender. Neuro: Oriented X 3. No motor deficit. No sensory deficit. Reflexes normal. Results Reviewed Results Reviewed: - Labs: Prediabetes indicated by A1c of 5.8%. Coding Level of Care Code Est Pt Level 4 (03489) Complex EM visit Add On G2211 Diagnoses Hyperlipidemia LDL goal <100 E78.5 Hypogonadism male E29.1 Heart murmur R01.1 Hypertension I10 Diabetes mellitus E11.9 Additional Codes CHELLY-7 Assessment Billing - CHELLY-7 Assessment Tool: CHELLY-7 Assessment 56460 ([id number]) PHQ-9 - 65692 - PHQ-9 Billing: Yes ([id number]) Assessment & Plan Assessment & Plan (1) Hyperlipidemia LDL goal <100: Code(s): E78.5 - Hyperlipidemia, unspecified Category: Medical Plan: The patient is exploring alternatives to statins, focusing on lifestyle measures and queries into supplements. Condition is chronic and stable will continue to monitor. (2) Hypogonadism male: Code(s): E29.1 - Testicular hypofunction Category: Medical Plan: Interim management of testosterone therapy is advised in anticipation of a future urological consult. Condition is chronic and stable will continue to monitor. (3) Heart murmur: Code(s): R01.1 - Cardiac murmur, unspecified Category: Medical Plan: Continued monitoring of the heart murmur is advised, with no immediate intervention necessary unless symptoms evolve. Condition is chronic and stable will continue to monitor. (4) Hypertension: Code(s): I10 - Essential (primary) hypertension Category: Medical Plan: The patient's hypertension is effectively managed with the current lisinopril regimen, requiring ongoing monitoring and lifestyle adherence. Condition is chronic and stable will continue to monitor. (5) Diabetes mellitus: Code(s): E11.9 - Type 2 diabetes mellitus without complications Category: Medical Plan: Maintenance of prediabetic status is advised with current supplements and lifestyle measures, ensuring regular glucose monitoring. Condition is chronic and stable will continue to monitor. Plan Plan Patient was informed and verbally consented to the use of an ambient scribe for clinic note documentation during this visit. 1. Essential Hypertension The patient's hypertension is effectively managed with the current lisinopril regimen, requiring ongoing monitoring and lifestyle adherence. 2. Type 2 Diabetes Mellitus With Prediabetes Status Maintenance of prediabetic status is advised with current supplements and lifestyle measures, ensuring regular glucose monitoring. 3. Heart Murmur Continued monitoring of the heart murmur is advised, with no immediate intervention necessary unless symptoms evolve. 4. Hyperlipidemia The patient is exploring alternatives to statins, focusing on lifestyle measures and queries into supplements. 5. Hypogonadism Interim management of testosterone therapy is advised in anticipation of a future urological consult. During the visit, we reviewed the patient's chronic diagnoses including hypertension, prediabetes, heart murmur, hyperlipidemia, and hypogonadism. We discussed the current management plan focusing on maintaining blood pressure control with lisinopril, monitoring prediabetes with non-pharmacological supplements, and the implications of managing his heart murmur. We talked about the risks and alternatives to statins, and potential non-statin therapies. The patient is advised to relay his current testosterone regimen to his urologist ahead of his September appointment. Follow-up with cardiology is scheduled for September for further discussion on an alternative form of cardiovascular management. Return visits are suggested following his pulmonologist intensivist evaluation or as necessary if issues arise. Patient Instructions: - Continue taking prescribed lisinopril dosage for blood pressure management. - Monitor blood sugar levels regularly to manage prediabetes effectively. - Follow up with pulmonologist intensivist in September as scheduled. - Send the current testosterone dosage information to the urologist. - Contact us if new symptoms or concerns develop regarding existing conditions.
== END 2024-06-30 14:03 | disposition home or self-care (01) ==
LOC: HO.HMCSH 13:11
PROVIDERS: PCP Physician Assistant Medical; Visit Provider Physician Assistant Medical
DX: E78.5 Hyperlipidemia, unspecified (principal); E29.1 Testicular hypofunction; R01.1 Cardiac murmur, unspecified; I10 Essential (primary) hypertension; E11.9 Type 2 diabetes mellitus without complications

== ENCOUNTER → 2024-06-30 13:11 | Outpatient (BNVA) | payer MEDICARE, SELFPAY | PROVIDERS: PCP Physician Assistant Medical; Visit Provider Physician Assistant Medical | DX: E29.1 Testicular hypofunction (principal); E78.5 Hyperlipidemia, unspecified; R01.1 Cardiac murmur, unspecified; I10 Essential (primary) hypertension; E11.9 Type 2 diabetes mellitus without complications; Z79.899 Other long term (current) drug therapy | CPT/HCPCS: 96127; 99212 ==

== ENCOUNTER 2024-09-23 12:54 | Outpatient (AMB) | payer MEDICARE, SELFPAY ==
--- NOTE | 2024-09-23 12:55 | A.OFFVIS_ITS ---
Intake Visit Reasons: low testosterone Intake Note: PAITENT PRESENT FOR: NEW PT, LOW TESTO UROLOGY MEDICATIONS: FINASTERIDE, DOXAZOSIN, TESTOSTERONE BLOODTHINNERS: NONE LABS DONE 06/09/24: TESTO 189 Perforator Loader Required: No Accompanied by: Self / Same As Patient Allergies Seasonal Allergies Allergy (Mild, Verified 09/23/24 12:55) Unknown HPI Comments Details: Lower urinary tract symptoms Combination therapy Hypogonadism [facility] Medical History (Updated 09/23/24 @ 13:27 by Mauri Correia MD) Hypogonadism male Elevated triglycerides with high cholesterol Hyperlipidemia LDL goal <100 Cerumen impaction Low testosterone Chronic constipation Establishing care with new doctor, encounter for Heart murmur Chronic kidney disease Chronic sinus bradycardia Cataract Retinopathy Glaucoma, narrow-angle Hypertension Hypercholesterolemia Diabetes mellitus Surgical History History of colonoscopy Family History Mother No problems noted. Father Diabetes Cardiovascular disease Heart problem Social History Housing: House Alcohol intake: current Alcohol intake frequency: does not drink Patient Tobacco Use Status: Former Tobacco user service: No Current occupational status: retired Cognitive needs: No Hearing needs: No Vision needs: No Results AMB Urinalysis, Automated UA Leukoctes 0 Som/uL Last Edit by SANTA Blandon on 09/23/24 14:26 UA Nitrite Negative Last Edit by SANTA Blandon on 09/23/24 14:26 UA Urobilinogen 0.2 mg/dL Last Edit by SANTA Blandon on 09/23/24 14:2 6 UA Protein 0 mg/dL Last Edit by SANTA Blandon on 09/23/24 14:26 UA pH 6.0 Last Edit by SANTA Blandon on 09/23/24 14:26 UA Blood 0 [place]/uL Last Edit by SANTA Blandon on 09/23/24 14:26 UA Specific [place] 1.010 Last Edit by SANTA Blandon on 09/23/24 14: 26 UA Ketone Negative Last Edit by SANTA Blandon on 09/23/24 14:26 UA Bilirubin 0 mg/dL Last Edit by SANTA Blandon on 09/23/24 14:26 UA Glucose 0 mg/dL Last Edit by SANTA Blandon on 09/23/24 14:26 Assessment & Plan Assessment & Plan (1) Hypogonadism male: Code(s): E29.1 - Testicular hypofunction Category: Medical (2) Bladder outlet obstruction: Code(s): N32.0 - Bladder-neck obstruction Category: Medical Orders: Orders Testosterone, Total 5 Months E29.1 - Testicular hypofunction Prostate Specific Antigen 5 Months E29.1 - Testicular hypofunction Hematocrit 5 Months E29.1 - Testicular hypofunction AMB Urinalysis Automated Today Z13.9 - Encounter for screening, unspecified US bladder Today E29.1 - Testicular hypofunction Medications: Changed From finasteride 5 mg PO DAILY E29.1 - Testicular hypofunction To finasteride 5 mg PO DAILY 90 days 90 tabs 1RF E29.1 - Testicular hyp ofunction From doxazosin 4 mg PO DAILY 90 tabs 1RF E29.1 - Testicular hypofunction To doxazosin 8 mg PO QPM 90 days 90 tabs 1RF E29.1 - Testicular hypofunction Coding Diagnoses Hypogonadism male E29.1 Bladder outlet obstruction N32.0
--- OUTSIDE RECORDS SUMMARY | 2024-09-23 13:39 | XMS_ITS | Clinical Summary ---
Author Organization [facility] Address [address] [address] Phone Care Team Providers Care Cripple Cutter Name Role Phone Unknown, Unknown Primary Care Provider Juancarlos chapa Allergies No known active allergies Medications amLODIPine (NORVASC) 10 MG tablet Take 1 tablet (10 mg total) by mouth daily. 90 tablet 03/14/2019 Active finasteride (PROSCAR) 5 mg tablet TAKE 1 TABLET(5 MG) BY MOUTH DAILY 90 tablet 03/14/2019 Active metoprolol succinate (TOPROL-XL) 50 MG 24 hr tablet Take 1 tablet (50 mg total) by mouth daily. 90 tablet 03/14/2019 Active lisinopril (PRINIVIL,ZESTRI L) 20 MG tablet Take 1 tablet (20 mg total) by mouth 2 (two) times a day. 180 tablet 03/14/2019 Active alfuzosin (UROXATRAL) 10 mg 24 hr tablet Take 1 tablet by mouth once daily 90 tablet 06/03/2019 Active Active Problems Problem Noted Date Diagnosed Date Hypogonadism male 05/13/2018 Assessment & Plan (06/24/2018 1:24 PM EDT): Symptomatically the patient doing well. We will recheck his testosterone level at his next appointment. Assessment & Plan (05/13/2018 6:00 PM EDT): As mentioned above we will check his testosterone level and move forward from there. Benign prostatic hyperplasia with urinary hesita ncy 05/13/2018 Assessment & Plan (06/24/2018 1:24 PM EDT): Well-controlled with current medication. Continue same. Assessment & Plan (05/13/2018 6:01 PM EDT): The patient may not be tolerated tamsulosin. He is not sure which pharmacy he would like to use and he will call with the name of the pharmacy when he calls with his blood pressure medication. But I will send in a prescription for alfuzosin. At that point he can also discontinue the tamsulosin but continue with the finasteride. We discussed the fact that the testosterone supplement he is taking may be worsening his BPH. I would like to review his testosterone level. We may want to get the historical levels to see if he truly ever had hypogonadism. The potential risks of androgen therapy such as cardiovascular disease, prostate cancer and thrombosis were reviewed with the patient. If his symptoms do not get better with the medication change, I will refer him to urology. Essential hypertension 05/13/2018 Assessment & Plan (06/24/2018 1:24 PM EDT): Blood pressure still a bit elevated. He has not tolerated beta-manuel and is reluctant to take a diuretic because of his urinary frequency. I asked him to continue working on his diet, weight and exercise. I asked him to continue monitoring at home and will reevaluate at next appointment. He also needs a lipid panel and we will recheck at his next appointment. Assessment & Plan (05/13/2018 5:58 PM EDT): Blood pressure is moderately elevated. The patient will call to confirm the name and dose his medication. He thinks that he is taking lisinopril. Depending on what he is taking and the results of his labs, I will make some changes with his medication help his blood pressure down. The goal is to keep a less than 140/90. Social History Tobacco Use Types Packs/Day Years Used Date Smoking Tobacco: Former Cigarettes Q uit: 05/13/2014 Smokeless Tobacco: Never Alcohol Use Standard Drinks/Week Comments Never 0 (1 standard drink = 0.6 oz pur e alcohol) Education Answer Date Recorded Are you interested in more education? Not on david e 06/09/2022 Are you concerned about learning? Not on file 06/09/2022 No 06/09/2022 No 06/09/2022 Digital Access Answer Date Recorded No 07/07/2022 No 07/07/2022 No 07/07/2022 Reliable internet access at home? Not on file 07/07/2022 Device with a working camera? 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 Not on file Not on file Last Filed Vital Signs Vital Sign Reading Time Taken Comments Blood Pressure 132/72 06/24/2018 12:55 PM EDT Pulse 79 06/24/2018 12:55 PM EDT Temperature - - Respiratory Rate - - Oxygen Saturation 97% 06/24/2018 12:55 PM EDT Inhaled Oxygen Concentration - - Weight 103.4 kg (228 lb) 06/24/2018 12:55 PM EDT Height 173.5 cm (5' 8.31 ) 05/13/2018 2:12 PM ED T Body Mass Index 34.36 05/13/2018 2:12 PM EDT Plan of Treatment Health Maintenance Due Date Last Done Comments BLOOD PRESSURE 1945 DEPRESSION SCREENING 1958 SMOKING Hx and SMOKELESS TOBACCO SCREENING 08/06/1959 CREATININE LEVEL 05/14/2019 05/13/2018 POTASSIUM LEVEL 05/14/2019 05/13/2018 PNEUMOCOCCAL VACCINES (50+ years) (2 of 2 - PPSV23) 04/13/2020 04/14/2019 RSV VACCINE (1 - 1-dose 75+ series) 2021 LIPID PANEL 05/14/2023 05/13/2018, 05/13/2018 COVID-19 VACCINE (2 - 2023-2 5 season) 2023 06/10/2020 Adult Td,Tdap Booster 03/13/2029 03/13/2019 HEPATITIS C SCREENING Completed 09/14/2017 ZOSTER VACCINES Completed 02/20/2020, 10/06/2019 HEPATITIS A VACCINES Aged Out No long er eligible based on patient's age to complete this topic HIB VACCINES Aged Out No longer eligi ble based on patient's age to complete this topic MENINGOCOCCAL VACCINES (ACWY) Aged Out No longer eligible based on patient's age to complete this topic MENINGOCOCCAL VACCINES (B) Aged Out N o longer eligible based on patient's age to complete this topic Medical Devices Not on file Procedures Procedure Name Priority Date/Time Associated Diagnosis Comments LIPID PANEL Routine 05/13/2018 3:32 PM EDT Essential hypertension COMPREHENSIVE METABOLIC PANEL Routine 05/13/2018 3:32 PM EDT Essential hypertension from Last 3 Months or Most Recently Relevant to Health Maintenance Results * (ABNORMAL) Comprehensive metabolic panel (05/13/2018 3:32 PM EDT) SODIUM 139 133 - 146 mmol/L [facility] POTASSIUM 4.4 3.3 - 5.1 mmol/L [facility] CHLORIDE 104 96 - 108 mmol/L [facility] CO2 21 21 - 35 mmol/L [facility] BUN 14 6 - 19 mg/dL [facility] CREATININE 1.30 0.5 - 1.5 mg/dL [facility] GLUCOSE 103(H) 70 - 99 mg/dL [facility] ALBUMIN 4.6 3.9 - 4.8 g/dL [facility] TOTAL PROTEIN 7.8 6.5 - 8.0 g/dL [facility] CALCIUM 9.5 8.4 - 10.3 mg/dL [facility] ALKALINE PHOSPHATASE 76 39 - 117 U/L [facility] TOTAL BILIRUBIN 0.2 0.0 - 1.2 mg/dL [facility] Comment: Results from certain multiple myeloma patients may show a positive bias in recovery. Not all multiple myeloma patients show the bias and severity of the bias may vary between patients. In very rare cases, gammopathy, in particular type IgM (Waldenstrom's macroglobulinemia), may cause unreliable results. AST 20 0 - 37 U/L [facility] ALT 26 0 - 40 U/L [facility] GLOBULIN 3.2 1 - 4.8 g/dL [facility] EGFR 55(L) >59 mL/min/1.7 3m2 [facility] Comment:If patient is black, multiply result by 1.159. Estimated glomerular filtration rate calculated using the CKD-EPI equation. ANION GAP 18 10 - 20 mmol/L [facility] Blood 05/13/2018 3:32 PM EDT 05/13/2018 3:35 PM EDT Erik Barbosa MD LAB BLOOD ORDERABLES Final Result Performing Organization Address [facility] Co de Phone Number [address] [address] * (ABNORMAL) Lipid panel (05/13/2018 3:32 PM EDT) HDL 43 mg/dL [facility] Comment: Interpretation <40 mg/dL: Low HDL cholesterol (major risk factor for CHD) Greater than or equal to 60 mg/dL: High HDL cholesterol ( negative risk factor for CHD) HDL - cholesterol is affected by a number of factors, e.g. smoking, excerise, hormones, sex and age. CHOLESTEROL 253(H) 0 - 240 mg/dL [facility] TRIGLYCERIDES 211(H) 30 - 160 mg/dL [facility] LDL 168(H) 50 - 129 mg/dL [facility] Comment: LDL levels in terms of risk for coronary heart disease: <100 mg/dL: Optimal 100-129 mg/dL: Near or above optimal 130-159 mg/dL: Borderline high 160-189 mg/dL: High >190 mg/dL: Very High CARDIAC RISK RATIO 5.9(H) 3.4 - 5.0 C [facility] Blood 05/13/2018 3:32 PM EDT 05/13/2018 3:35 PM EDT us Erik Barbosa MD LAB BLOOD ORDERABLES Final Result Performing Organization Address [facility]/ZIP Co de Phone Number [address] [address] from Last 3 Months or Most Recently Relevant to Health Maintenance Insurance [employer] MEDICARE [place] [address] [address] MEDICARE REPLACEMENT [employer] RE[employer] [id number] [employer] [place] [place] [id number] [employer] Care Teams Cripple Cutter Relationship Specialty Start Date End Date Unknown, Unknown, PCP - General 01/28/20 Additional Source Comments The information contained in this document represents components of the legal health record. It is not the complete legal health record.[facility]
== END 2024-09-23 13:37 | disposition home or self-care (01) ==
LOC: HO.HUSH 12:55
PROVIDERS: PCP Physician Assistant Medical; Visit Provider Urology
DX: Z13.9 Encounter for screening, unspecified (principal)

== ENCOUNTER → 2024-09-23 12:54 | Outpatient (BNVA) | payer MEDICARE, SELFPAY | PROVIDERS: PCP Physician Assistant Medical; Visit Provider Urology | DX: E29.1 Testicular hypofunction (principal) | CPT/HCPCS: 81003 ==

== ENCOUNTER 2024-10-06 13:01 | Outpatient (REF) | payer MEDICARE, SELFPAY | END 2024-10-06 13:02 | disposition home or self-care (01) | LOC: HO.LAB 13:01 | PROVIDERS: Absent Provider Physician Assistant Medical; PCP Physician Assistant Medical; Visit Provider Internal Medicine Cardiovascular Disease | DX: I10 Essential (primary) hypertension (principal); R06.02 Shortness of breath; I35.0 Nonrheumatic aortic (valve) stenosis; I25.10 Atherosclerotic heart disease of native coronary artery without angina pectoris; R07.9 Chest pain, unspecified; E11.51 Type 2 diabetes mellitus with diabetic peripheral angiopathy without gangrene; E29.1 Testicular hypofunction; Z79.899 Other long term (current) drug therapy; Z87.891 Personal history of nicotine dependence; Z79.85 Long-term (current) use of injectable non-insulin antidiabetic drugs | CPT/HCPCS: 93005; 99202 ==

== ENCOUNTER 2024-10-06 13:01 | Outpatient (AMB) | payer MEDICARE, SELFPAY ==
--- OUTSIDE RECORDS SUMMARY | 2003-02-11 20:00 | XMS_ITS | Continuity of Care Document ---
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 It does not include entries that were removed or entered in error. Problem Status Onset Date Problem Type Date of Resolution Comments Source [facility] Active Condition [facility]
--- NOTE | 2024-10-06 13:03 | A.OFFVIS_ITS ---
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 Since then he has been mostly sedentary. He has developed high blood pressure and currently taking multiple medications for it. He occasionally comp lains of orthostatic lightheadedness but this is not a predominant problem. He also complains of exertional shortness of breath. Recently on clinical exam was noted to have systolic murmur and was referred here for further evaluation. Patient denies any exertional chest pain. No loss of consciousness. Denies any orthopnea, PND, leg edema. No prolonged palpitation irregular heartbeat is noted. [facility] Medical History Hypogonadism male Elevated triglycerides with high cholesterol Hyperlipidemia LDL goal <100 Cerumen impaction Low testosterone Chronic constipation Establishing care with new doctor, encounter for Heart murmur Chronic kidney disease Chronic sinus bradycardia Cataract Retinopathy Glaucoma, narrow-angle Hypertension Hypercholesterolemia Diabetes mellitus Surgical History History of colonoscopy Family History Mother No problems noted. Father Diabetes Cardiovascular disease Heart problem Social History Housing: House Alcohol intake: current Alcohol intake frequency: does not drink Patient Tobacco Use Status: Former Tobacco user service: No Current occupational status: retired Cognitive needs: No Hearing needs: No Vision needs: No Review of Systems Const Denies chills, Denies fatigue, Denies fever(s), Denies frequent falls, Denies weakness, Denies weight gain and Denies weight loss Eyes Denies loss of vision ENT Denies dizziness Card Denies chest pain, Denies leg edema, Denies lightheadedness, Denies palpitations, Denies dyspnea, Denies dyspnea on exertion, Denies orthopnea and Denies other (loss of consciousness) Resp Denies cough, Denies dyspnea, Denies dyspnea on exertion and Denies wheezing GI Denies hematochezia and Denies change in stool character Denies dysuria and Denies urinary frequency Musc Denies abnormal gait, Denies muscle weakness, Denies numbness, Denies radiating pain into limb and Denies tingling Skin/Breast Denies nail changes and Denies rash Neuro Denies abnormal gait, Denies dizziness, Denies frequent falls, Denies loss of vision, Denies memory loss, Denies numbness, Denies tingling and Denies weakness Psych Denies depression and Denies memory loss Endo Denies fatigue and Denies palpitations Curry/Lymph Reports easy bruising and Reports other (anemia) Aller/Immun Denies wheezing Physical Exam Vital Signs: Last Vital Signs Pulse 60 10/06/24 13:12 BP 120/80 10/06/24 13:12 BMI result Body Mass Index 33.2 Const General: cooperative, comfortable, no acute distress, alert and awake Nutritional Appearance: obese Orientation/consciousness: patient oriented x3 Limitations: no limitations HEENT Head: Yes normocephalic and Yes atraumatic Neck Neck: Yes trachea midline, Yes supple and Yes no JVD Resp Effort & Inspection: normal respiratory effort Auscultation: clear to auscultation bilaterally Cardio Jugular venous distension: no JVD Rate: regular rate Rhythm: regular rhythm Heart sounds: S1 normal heart sound present, S2 normal heart sound present, no click, no gallops and Murmur heart sound present systolic mid, decrescendo and crescendo Skin General skin exam: no rashes or lesions noted Neuro General: patient oriented x3 and no focal motor deficits Extrem General: Yes no clubbing, cyanosis or edema Office Procedures EKG Details: EKG today shows normal sinus rhythm first-degree AV block with nonspecific intraventricular conduction delay with ST T wave changes that could represent repolarization abnormality with Q-waves in lead AVF [id number], Complete Assessment & Plan Assessment & Plan (1) Short of breath on exertion: Code(s): R06.02 - Shortness of breath Category: Medical Plan: Elderly man with exertional shortness of breath with multiple risk factors including longstanding hypertension as hyperlipidemia and prior smoking. His shortness of breath could be related pulmonary etiology. Although underlying aortic stenosis is also possibly contributing to his shortness of breath. Need to rule out significant obstructive coronary artery disease as this would lead to significant change in his therapeutic options. Suggest exercise myocardial perfusion imaging in near future along with an echocardiogram. His shortness of breath also could be related to hypertensive heart disease and diastolic dysfunction. No clinical signs of heart failure. Suggest echocardiogram as above. (2) Aortic stenosis: Code(s): I35.0 - Nonrheumatic aortic (valve) stenosis Category: Medical Plan: Clinically appears to have aortic stenosis. Need to evaluate severity of aortic stenosis. Advise echocardiogram as above in near future. Advise low-dose aspirin therapy. Also have taken the liberty to start him on statin therapy given his high LDL with multiple risk factors including presence of aortic stenosis as well as diabetes. Goal LDL less than 70 mg/dL. Continue aggressive management diabetes goal hemoglobin A1c less than 7%. Blood pressure is currently well optimized on current therapy. His overall low heart rate is probably related to high dose beta-manuel therapy. However he has no symptoms related to it and will pursue continued current pharmacologic therapy to maintain blood pressure which is well optimized. Will follow up in the clinic in 2 months, sooner p.r.n.. 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 CA echo transthoracic complete Today Luís Blankenship MD I35.0 - Nonrheumatic aortic (valve) stenosis NM cardiolite stress test 2 Weeks Luís Blankenship MD R06.02 - Shortness of breath, R07.9 - Chest pain, unspecified US arterial duplex LE BI Today Luís Blankenship MD I73.9 - Peripheral vascular disease, unspecified Medications: New aspirin (Ecotrin Low Strength) 81 mg PO DAILY 30 tabs 5RF Luís Blankenship MD rosuvastatin 20 mg PO DAILY 30 tabs 5RF Luís Blankenship MD Changed From doxazosin 8 mg PO QPM 90 days 90 tabs 1RF E29.1 - Testicular hypofunction To doxazosin 4 mg PO QPM E29.1 - Testicular hypofunction Mauri Correia MD Coding Level of Care Code New Pt Level 4 (39963) Complex EM visit Add On G2211 Diagnoses Short of breath on exertion R06.02 Aortic stenosis I35.0 CPT Codes EKG - CPT: 69348-[id number], Complete ([id number])
[2024-10-06 13:12] VITALS: BP 120/80; PULSE 60; BMI 33.2
--- OUTSIDE RECORDS SUMMARY | 2024-10-06 14:15 | XMS_ITS | Clinical Summary ---
Author Organization [facility] Address [address] [place] [address] [address] Phone Care Team Providers Care Picture Engraver Name Role Phone Unknown, Unknown Primary Care [...] 05/14/2023 05/13/2018, 05/13/2018 COVID-19 VACCINE (2 - 2023- season) 2023 06/10/2020 INFLUENZA VACCINE (#1) 2024 0, 10/12/2018, 10/12/2018, Additional history exists Adult Td,Tdap Booster 03/13/2029 03/13/2019 HEPATITIS C [...] EDT) SODIUM 139 133 - 146 mmol/L [facility] POTASSIUM 4.4 3.3 - 5.1 mmol/L [facility] CHLORIDE 104 96 - 108 mmol/L [facility] CO2 21 21 - 35 mmol/L [facility] BUN 14 6 - 19 mg/dL [facility] CREATININE 1.30 0.5 - 1.5 mg/dL [facility] GLUCOSE 103(H) 70 - 99 mg/dL [facility] ALBUMIN 4.6 3.9 - 4.8 g/dL [facility] TOTAL PROTEIN 7.8 6.5 - 8.0 g/dL [facility] CALCIUM 9.5 8.4 - 10.3 mg/dL [facility] ALKALINE PHOSPHATASE 76 39 - 117 U/L [facility] TOTAL BILIRUBIN 0.2 0.0 - 1.2 mg/dL [facility] Comment: Results from certain multiple myeloma patients may show a positive bias in recovery. Not all multiple myeloma patients show the bias and severity of the bias may vary between patients. In very rare cases, gammopathy, in particular type IgM (Waldenstrom's macroglobulinemia), may cause unreliable results. AST 20 0 - 37 U/L [facility] ALT 26 0 - 40 U/L [facility] GLOBULIN 3.2 1 - 4.8 g/dL [facility] EGFR 55(L) >59 mL/min/1.7 3m2 [facility] Comment:If patient is black, multiply result by 1.159. Estimated glomerular filtration rate calculated using the CKD-EPI equation. ANION GAP 18 10 - 20 mmol/L [facility] Blood 05/13/2018 3:32 PM EDT 05/13/2018 3:35 PM EDT Erik Barbosa MD LAB BLOOD ORDERABLES Final Result Performing Organization Address [facility] Co de Phone Number [address] [address] * (ABNORMAL) Lipid panel (05/13/2018 3:32 PM EDT) HDL 43 mg/dL [facility] Comment: Interpretation <40 mg/dL: Low HDL cholesterol (major risk factor for CHD) Greater than or equal to 60 mg/dL: High HDL cholesterol ( negative risk factor for CHD) HDL - cholesterol is affected by a number of factors, e.g. smoking, excerise, hormones, sex and age. CHOLESTEROL 253(H) 0 - 240 mg/dL [facility] TRIGLYCERIDES 211(H) 30 - 160 mg/dL [facility] LDL 168(H) 50 - 129 mg/dL [facility] Comment: LDL levels in terms of risk for coronary heart disease: <100 mg/dL: Optimal 100-129 mg/dL: Near or above optimal 130-159 mg/dL: Borderline high 160-189 mg/dL: High >190 mg/dL: Very High CARDIAC RISK RATIO 5.9(H) 3.4 - 5.0 C [facility] Blood 05/13/2018 3:32 PM EDT 05/13/2018 3:35 PM EDT Erik Barbosa MD LAB BLOOD ORDERABLES Final Result Performing Organization Address [facility] Co de Phone Number [address] [address] from Last 3 Months or Most Recently Relevant to Health Maintenance Insurance [employer] [place] [id number] [place] [id number] [place] [phone] [place] [address] MEDICARE REPLACEMENT [employer] Care Teams Picture Engraver Relationship Specialty Start Date End Date Unknown, Unknown, PCP - General 01/28/20 Additional Source Comments The information contained in this document represents components of the legal health record. It is not the complete legal health record.[facility]
== END 2024-10-06 13:56 | disposition home or self-care (01) ==
LOC: HO.HCS 13:01
PROVIDERS: PCP Physician Assistant Medical; Visit Provider Internal Medicine Cardiovascular Disease
DX: R06.02 Shortness of breath (principal); I35.0 Nonrheumatic aortic (valve) stenosis
CPT/HCPCS: 93010; 99204; G2211

== ENCOUNTER 2024-10-09 14:00 | Outpatient (REF) | payer MEDICARE, SELFPAY | END 2024-10-09 14:01 | disposition home or self-care (01) | LOC: HO.LNP 14:00 | PROVIDERS: Visit Provider Physician Assistant Medical | DX: N32.0 Bladder-neck obstruction (principal); N18.9 Chronic kidney disease, unspecified | CPT/HCPCS: 82570 ==

== ENCOUNTER 2024-10-10 10:42 | Outpatient (REF) | payer MEDICARE, SELFPAY ==
--- OUTSIDE RECORDS SUMMARY | 2003-02-11 20:00 | XMS_ITS | Continuity of Care Document ---
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 It does not include entries that were removed or entered in error. Problem Status Onset Date Problem Type Date of Resolution Comments Source [facility] Active Condition [facility]
--- OUTSIDE RECORDS SUMMARY | 2024-10-10 11:21 | XMS_ITS | Clinical Summary ---
Author Organization [facility] Address [address] [address] Phone Care Team Providers Care Rehabilitation Specialist Name Role Phone Unknown, Unknown Primary Care [...] SODIUM 139 133 - 146 mmol/L [facility] POTASSIUM 4.4 3.3 - 5.1 mmol/L [facility] CHLORIDE 104 96 - 108 mmol/L [facility] CO2 21 21 - 35 mmol/L [facility] BUN 14 6 - 19 mg/dL [facility] CREATININE 1.30 0.5 - 1.5 mg/dL [facility] GLUCOSE 103(H) 70 - 99 mg/dL [facility] ALBUMIN 4.6 3.9 - 4.8 g/dL [facility] TOTAL PROTEIN 7.8 6.5 - 8.0 g/dL [facility] CALCIUM 9.5 8.4 - 10.3 mg/dL [facility] ALKALINE PHOSPHATASE 76 39 - 117 U/L [facility] TOTAL BILIRUBIN 0.2 0.0 - 1.2 mg/dL [facility] Comment: Results from certain multiple myeloma patients may show a positive bias in recovery. Not all multiple myeloma patients show the bias and severity of the bias may vary between patients. In very rare cases, gammopathy, in particular type IgM (Waldenstrom's macroglobulinemia), may cause unreliable results. AST 20 0 - 37 U/L [facility] ALT 26 0 - 40 U/L [facility] GLOBULIN 3.2 1 - 4.8 g/dL [facility] EGFR 55(L) >59 mL/min/1.7 3m2 [facility] Comment:If patient is black, multiply result by 1.159. Estimated glomerular filtration rate calculated using the CKD-EPI equation. ANION GAP 18 10 - 20 mmol/L [facility] Blood 05/13/2018 3:32 PM EDT 05/13/2018 3:35 PM EDT Erik Barbosa MD LAB BLOOD ORDERABLES Final Result Performing Organization Address [facility] Co de Phone Number [address] [address] * (ABNORMAL) Lipid panel (05/13/2018 3:32 PM EDT) HDL 43 mg/dL [facility] Comment: Interpretation <40 mg/dL: Low HDL cholesterol (major risk factor for CHD) Greater than or equal to 60 mg/dL: High HDL cholesterol ( negative risk factor for CHD) HDL - cholesterol is affected by a number of factors, e.g. smoking, excerise, hormones, sex and age. CHOLESTEROL 253(H) 0 - 240 mg/dL [facility] TRIGLYCERIDES 211(H) 30 - 160 mg/dL [facility] LDL 168(H) 50 - 129 mg/dL [facility] Comment: LDL levels in terms of risk for coronary heart disease: <100 mg/dL: Optimal 100-129 mg/dL: Near or above optimal 130-159 mg/dL: Borderline high 160-189 mg/dL: High >190 mg/dL: Very High CARDIAC RISK RATIO 5.9(H) 3.4 - 5.0 C [facility] Blood 05/13/2018 3:32 PM EDT 05/13/2018 3:35 PM EDT Erik Barbosa MD LAB BLOOD ORDERABLES Final Result Performing Organization Address [facility] Co de Phone Number [address] [address] from Last 3 Months or Most Recently Relevant to Health Maintenance Insurance [facility] [employer] [employer] [facility] [employer] [facility] [employer] [place] [phone] [facility] [place] [phone] [facility] [place] [address] [place] [address] MEDICARE REPLACEMENT [facility] [employer] Care Teams Rehabilitation Specialist Relationship Specialty Start Date End Date Unknown, Unknown, PCP - General 01/28/20 Additional Source Comments The information contained in this document represents components of the legal health record. It is not the complete legal health record.[facility]
[2024-10-10 12:08] LABS: Anion Gap 12 (12-20); Blood Urea Nitrogen 22 mg/dL (9-16); Calcium 9.6 mg/dL (8.4-10.2); Carbon Dioxide 27 mmol/L (22-29); Chloride 105 mmol/L (96-108); Estimated Glomerular Filt Rate 47; Potassium 4.8 mmol/L (3.3-5.1); Sodium 139 mmol/L (135-145)
== END 2024-10-10 10:43 | disposition home or self-care (01) ==
LOC: HO.LAB 10:42
PROVIDERS: Physician Assistant Medical; Visit Provider Urology
DX: N32.0 Bladder-neck obstruction (principal); N18.9 Chronic kidney disease, unspecified
CPT/HCPCS: 36415; 80048

== ENCOUNTER 2024-10-17 10:27 | Outpatient (REF) | payer MEDICARE, SELFPAY ==
[2024-10-17 11:30] LABS: Anion Gap 10 (12-20); Blood Urea Nitrogen 18 mg/dL (9-16); Calcium 9.8 mg/dL (8.4-10.2); Carbon Dioxide 26 mmol/L (22-29); Chloride 107 mmol/L (96-108); Estimated Glomerular Filt Rate 50; Potassium 5.1 mmol/L (3.3-5.1); Sodium 138 mmol/L (135-145)
--- OUTSIDE RECORDS SUMMARY | 2024-10-17 11:30 | XMS_ITS | Clinical Summary ---
Author Organization [facility] Address [address] [address] Phone Care Team Providers Care Neurology Hospitalist Name Role Phone Unknown, Unknown Primary Care [...] series) 2021 LIPID PANEL 05/14/2023 05/13/2018, 05/13/2018 INFLUENZA VACCINE (#1) 2024 0, 10/12/2018, 10/12/2018, Additional history exists COVID-19 VACCINE (2 - 2024- season) 2024 06/10/2020 Adult Td,Tdap Booster 03/13/2029 03/13/2019 HEPATITIS [...] EDT) SODIUM 139 133 - 146 mmol/L [facility] POTASSIUM 4.4 3.3 - 5.1 mmol/L [facility] CHLORIDE 104 96 - 108 mmol/L [facility] CO2 21 21 - 35 mmol/L [facility] BUN 14 6 - 19 mg/dL [facility] CREATININE 1.30 0.5 - 1.5 mg/dL [facility] GLUCOSE 103(H) 70 - 99 mg/dL [facility] ALBUMIN 4.6 3.9 - 4.8 g/dL [facility] TOTAL PROTEIN 7.8 6.5 - 8.0 g/dL [facility] CALCIUM 9.5 8.4 - 10.3 mg/dL [facility] ALKALINE PHOSPHATASE 76 39 - 117 U/L [facility] TOTAL BILIRUBIN 0.2 0.0 - 1.2 mg/dL [facility] Comment: Results from certain multiple myeloma patients may show a positive bias in recovery. Not all multiple myeloma patients show the bias and severity of the bias may vary between patients. In very rare cases, gammopathy, in particular type IgM (Waldenstrom's macroglobulinemia), may cause unreliable results. AST 20 0 - 37 U/L [facility] ALT 26 0 - 40 U/L [facility] GLOBULIN 3.2 1 - 4.8 g/dL [facility] EGFR 55(L) >59 mL/min/1.7 3m2 [facility] Comment:If patient is black, multiply result by 1.159. Estimated glomerular filtration rate calculated using the CKD-EPI equation. ANION GAP 18 10 - 20 mmol/L [facility] Blood 05/13/2018 3:32 PM EDT 05/13/2018 3:35 PM EDT Erik Barbosa MD LAB BLOOD ORDERABLES Final Result Performing Organization Address [facility] Co de Phone Number [address] [address] * (ABNORMAL) Lipid panel (05/13/2018 3:32 PM EDT) HDL 43 mg/dL [facility] Comment: Interpretation <40 mg/dL: Low HDL cholesterol (major risk factor for CHD) Greater than or equal to 60 mg/dL: High HDL cholesterol ( negative risk factor for CHD) HDL - cholesterol is affected by a number of factors, e.g. smoking, excerise, hormones, sex and age. CHOLESTEROL 253(H) 0 - 240 mg/dL [facility] TRIGLYCERIDES 211(H) 30 - 160 mg/dL [facility] LDL 168(H) 50 - 129 mg/dL [facility] Comment: LDL levels in terms of risk for coronary heart disease: <100 mg/dL: Optimal 100-129 mg/dL: Near or above optimal 130-159 mg/dL: Borderline high 160-189 mg/dL: High >190 mg/dL: Very High CARDIAC RISK RATIO 5.9(H) 3.4 - 5.0 C [facility] Blood 05/13/2018 3:32 PM EDT 05/13/2018 3:35 PM EDT Erik Barbosa MD LAB BLOOD ORDERABLES Final Result Performing Organization Address [facility] Co de Phone Number [address] [address] from Last 3 Months or Most Recently Relevant to Health Maintenance Insurance [employer] [place] [id number] [employer] [place] [id number] [employer] [phone] [place] [address] MEDICARE REPLACEMENT [employer] Care Teams Neurology Hospitalist Relationship Specialty Start Date End Date Unknown, Unknown, PCP - General 01/28/20 Additional Source Comments The information contained in this document represents components of the legal health record. It is not the complete legal health record.[facility]
[2024-10-17 12:04] LABS: Creatinine, mg/dL 84.49
[2024-10-17 13:02] LABS: Total Volume 24 Hour Urine 1900 mL
[2024-10-17 13:03] LABS: Creatinine (CrCl) 1.37 mg/dL (0.5-1.4)
== END 2024-10-17 10:28 | disposition home or self-care (01) ==
LOC: HO.LAB 10:27
PROVIDERS: PCP Physician Assistant Medical; Visit Provider Physician Assistant Medical
DX: N18.9 Chronic kidney disease, unspecified (principal); N32.0 Bladder-neck obstruction; N17.9 Acute kidney failure, unspecified
CPT/HCPCS: 36415; 80048; 82570; 82575

== ENCOUNTER 2024-12-10 10:03 | Outpatient (AMB) | payer MEDICARE, SELFPAY ==
[2024-12-10 10:06] VITALS: BP 148/66; PULSE 60; RESP 14; TEMP 36.1; O2SAT 98; BMI 32.8
--- NOTE | 2024-12-10 10:06 | MHC.PC.OV ---
Vital Signs 12/10/24 10:06 Height 5 ft 8 in Weight 216 lb BMI 32.8 BP 148/66 H Respiration 14 Pulse 60 Pulse Source Pulse Oximeter Temp 97.0 F Temp Source Temporal Artery Scan Pulse Oximetry (%) 98 Oxygen Delivery Method Room Air Intake Visit Reasons: Kidney health eval request by Insurance Billing Department Supervisor Required: No Accompanied by: Self / Same As Patient Allergies Seasonal Allergies Allergy (Mild, Verified 12/10/24 11:31) Unknown Medication List - Last Reconciled 12/10/24 by Ginny Peter PA-C amlodipine 10 mg PO DAILY aspirin (Ecotrin Low Strength) 81 mg PO DAILY doxazosin 4 mg (1/2 x 8 mg) PO QPM 30 days finasteride 5 mg PO DAILY 90 days lisinopril 40 mg PO DAILY metoprolol succinate ER 100 mg PO DAILY rosuvastatin 20 mg PO DAILY semaglutide (Ozempic) mg subcut testosterone 10 mg/0.5 gram /actuation 1 pump transdermal QAM 3 months testosterone 1 pump topical DAILY Tobacco use date assessed: 06/04/24 Dental Screening Dental Screen Date: 06/04/24 HPI Kidney health eval request by Insurance HPI Details The patient is a 79-year-old male presenting for a follow-up visit to address abnormal kidney function and discuss his medications. He has a history of abnormal kidney lab results, which he attributes to toxin exposure in [place]. His kidney function was previously noted to be abnormal with Dr. Luoise and Dr. Correia. For decades, the patient took Cascara Sagrada for constipation, which he now understands is not good for the kidneys and has since stopped taking. He also reports using high doses of magnesium and stool softeners for constipation, which was exacerbated by a GLP-1 medication, but has since stopped the high-dose magnesium and switched to Senokot. His kidney function has improved, which he attributes to stopping these substances and starting [id number] kidney and liver supplements. He was previously referred to a crop grain or livestock farmer but canceled the appointment; however, he now has a new appointment scheduled for December 29, 2024. The patient is on a statin (rosuvastatin) and expressed concerns about its side effects, including kidney disease and cognitive problems in older adults, based on his own research. He is currently ambivalent about continuing the statin. His current medications include amlodipine, aspirin, finasteride, lisinopril, metoprolol, rosuvastatin, semaglutide, and topical testosterone. Social History - service: The patient is a who attributes some health issues to toxin exposure in [place]. 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 - Exercise: He states that at 79 years old, he does not exercise as much as he did when he was younger. [facility] Medical History (Updated 12/10/24 @ 14:25 by Ginny Peter PA-C) Constipation Skin lesion CKD stage 3a, GFR 45-59 ml/min ANNALISA (acute kidney injury) Hypogonadism male Elevated triglycerides with high cholesterol Hyperlipidemia LDL goal <100 Cerumen impaction Low testosterone Chronic constipation Establishing care with new doctor, encounter for Heart murmur Chronic kidney disease Chronic sinus bradycardia Cataract Retinopathy Glaucoma, narrow-angle Hypertension Hypercholesterolemia Diabetes mellitus Surgical History History of colonoscopy Family History Mother No problems noted. Father Diabetes Cardiovascular disease Heart problem Social History Housing: House Alcohol intake: current Alcohol intake frequency: does not drink Patient Tobacco Use Status: Former Tobacco user service: No Current occupational status: retired Cognitive needs: No Hearing needs: No Vision needs: No Questionnaire PHQ-9 Over the last 2 weeks, how often have you been bothered by any of the following problems? 1. Little interest or pleasure in doing things: not at all 2. Feeling down, depressed, or hopeless: not at all 3. Trouble falling or staying asleep, or sleeping too much: not at all 4. Feeling tired or having little energy: not at all 5. Poor appetite or overeating: not at all 6. Feeling bad about yourself - or that you are a failure or have let yourself or your family down: not at all 7. Trouble concentrating on things, such as reading the newspaper or watching television: not at all 8. Moving or speaking so slowly that other people could have noticed. Or the opposite - being so fidgety or restless that you have been moving around a lot more than usual: not at all 9. Thoughts that you would be better off or of hurting yourself in some way: not at all Total score: 0 Depression Screening Interpretation: Negative Depression Screening Done: Yes 17070 - PHQ-9 Billing: Yes Source: Developed by Drs. Matthew Stein, Jennifer Davis, Deshawn Perrin and colleagues, with an educational monique from [employer]. Thrive Questionnaire Date Thrive assessed: 06/04/24 I am a: Patient What is your living situation today?: I have a steady place to live Within the past 12 months, did the food you bought not last and you didn't have the money to get more?: Never true Within the past 12 months, did you worry whether your food would run out before you got money to buy more?: Never true Do you have trouble paying for medicines?: No Do you have trouble getting transportation to medical appointments?: No Do you have trouble paying your heating and electricity bill?: No Do you have trouble taking care of your child, family member or friend?: No Do you have trouble with day-to-day activities such as bathing, preparing meals, shopping, managing finances, etc.?: No Are you currently unemployed and looking for a job?: No Are you interested in more education?: No Please select the resources that you would like help with: None THRIVE Score: 0 AUDIT C Alcohol Use Questionnaire (AUDIT-C) 1. How often do you have a drink containing alcohol?: Never 3. How often do you have six or more drinks on one occasion?: Never Total Score: 0 Score Reviewed/Action Taken: No CHELLY-7 AMB Questionnaire CHELLY-7 Date CHELLY - 7 assessed: 06/04/24 Feeling nervous, anxious, or on edge: 0 = Not at all Not being able to stop or control worryin = Not at all Worrying too much about different things: 0 = Not at all Trouble relaxin = Not at all Being so restless that it is hard to sit still: 0 = Not at all Becoming easily annoyed or irritable: 0 = Not at all Feeling afraid as if something awful might happen: 0 = Not at all Total CHELLY-7 score (0-4 normal; 5-9 mild; 10-14 moderate; 15-21 severe): 0 Source: Developed by Drs. Matthew Stein, Jennifer Davis, Deshawn Perrin and colleagues, with an educational monique from [employer]. CHELLY-7 Assessment Billing CHELLY-7 Assessment Tool: CHELLY-7 Assessment 83020 Review of Systems Const Details: - Gastrointestinal: Reports a history of constipation, which was worsened by GLP-1 medication and is now managed with Senokot. - Neurological: Reports having pre-existing cognitive problems. All systems reviewed & are unremarkable except as noted in HPI and below Physical exam (Primary Care) Vital Signs: Last Vital Signs Temp 97.0 F 12/10/24 10:06 Pulse 60 12/10/24 10:06 Resp 14 12/10/24 10:06 BP 148/66 H 12/10/24 10:06 Pulse Ox 98 12/10/24 10:06 Oxygen Delivery Method Room Air 12/10/24 10:06 BMI result Body Mass Index 32.8 Tobacco/Smoking Status: Tobacco use Status Tobacco use date assessed 06/04/24 12/10/24 10:08 Patient Tobacco Use Status Former Tobacco user 12/10/24 10:08 PHQ-9: PHQ-9 Score PHQ-9: Total score 0 12/10/24 10:55 Depression Screening Interpretation: Negative Thrive Assessment: Date of Thrive Assessment Date Thrive assessed 06/04/24 12/10/24 10:08 Const Other: Appearance: Alert. Oriented X3. No acute distress. Head: Normal external exam. Normocephalic. Atraumatic. Eyes: Pupils are equal, round, and reactive to light. Extraocular movements intact. Conjunctiva and sclera normal. Eyelids normal. Throat: Pharynx normal. Uvula midline. Moist mucous membranes. Neck: Normal inspection. Neck supple. Full range of motion. Cardiovascular: Normal heart rate and rhythm. Respiratory: No respiratory distress. Painless inspiration. Back: Full range of motion noted. Skin: Skin warm and dry. Normal skin color. Extremities: Extremities exhibit normal range of motion. Office Procedures Flu Questionnaire Does the patient have a severe egg allergy?: No Does the patient have severe life threatening allergies?: No Does the patient have a fever or illness today?: No Has the patient ever had Guillain-Dumont Syndrome?: No Has the patient ever had any past reaction to a flu shot?: No Immunizations Fluarix [id number] (PF) 45 mcg (15 mcg x 3)/0.5 mL IM syringe Performing Provider: Ginny Peter PA-C [place] [place] [facility] Documented (not given) by: KIMO Hamilton on 12/10/24 10:09 Reason Not Given: Received Previously Results Reviewed Results Reviewed: - Labs: Past labs have shown abnormal kidney function. - Labs: Kidney function has improved since he stopped taking nephrotoxic substances. - Labs: Cholesterol is noted to be slightly high. Coding Level of Care Code Est Pt Level 4 (76331) Complex EM visit Add On G2211 Diagnoses Chronic kidney disease N18.9 Hyperlipidemia LDL goal <100 E78.5 Constipation K59.00 Additional Codes CHELLY-7 Assessment Billing - CHELLY-7 Assessment Tool: CHELLY-7 Assessment 13013 ([id number]) PHQ-9 - 18961 - PHQ-9 Billing: Yes ([id number]) Time Spent (min) 45 Assessment & Plan Assessment & Plan (1) Chronic kidney disease: Code(s): N18.9 - Chronic kidney disease, unspecified Category: Medical Plan: The patient's abnormal kidney function, noted on prior labs, has shown improvement. This is likely due to the cessation of long-term Cascara Sagrada use, which he took for decades. His insurance company has requested repeat kidney function tests. A urine creatinine and GFR will be ordered, and the patient can have these non-fasting labs drawn at his convenience. The patient was advised to keep his scheduled nephrology appointment on December 29, 2024. (2) Hyperlipidemia LDL goal <100: Code(s): E78.5 - Hyperlipidemia, unspecified Category: Medical Plan: The patient is ambivalent about continuing rosuvastatin due to concerns about side effects, such as kidney problems and cognitive issues, which he has researched. A detailed discussion was held regarding the risks versus benefits of statins. The patient was provided with informational handouts about dietary modifications for cholesterol and other cholesterol medication options. No medication change was made at this time. (3) Constipation: Code(s): K59.00 - Constipation, unspecified Category: Medical Plan: The patient reports a history of constipation, worsened by a GLP-1 medication. He has appropriately discontinued the use of Cascara Sagrada and high-dose magnesium and has switched to Senokot, which is a safer alternative. Plan Plan Patient was informed and verbally consented to the use of an ambient scribe for clinic note documentation during this visit. 1. Abnormal Kidney Function The patient's abnormal kidney function, noted on prior labs, has shown improvement. This is likely due to the cessation of long-term Cascara Sagrada use, which he took for decades. His insurance company has requested repeat kidney function tests. A urine creatinine and GFR will be ordered, and the patient can have these non-fasting labs drawn at his convenience. The patient was advised to keep his scheduled nephrology appointment on December 29, 2024. 2. Hyperlipidemia The patient is ambivalent about continuing rosuvastatin due to concerns about side effects, such as kidney problems and cognitive issues, which he has researched. A detailed discussion was held regarding the risks versus benefits of statins. The patient was provided with informational handouts about dietary modifications for cholesterol and other cholesterol medication options. No medication change was made at this time. 3. Constipation The patient reports a history of constipation, worsened by a GLP-1 medication. He has appropriately discontinued the use of Cascara Sagrada and high-dose magnesium and has switched to Senokot, which is a safer alternative. I had an extensive discussion with the patient regarding the rationale for repeating his kidney function tests. I explained that while his insurance company prompted the recheck, the primary reason is to monitor his health and ensure his kidney function has improved after stopping potentially harmful substances. We also had a detailed conversation about his statin medication. I acknowledged his research and concerns about side effects and engaged in a risk-benefit discussion, sharing an anecdote about the positive effects of statins on plaque reduction. I provided him with written information on dietary management and alternative medications. Throughout the visit, I emphasized that medical decisions are ultimately his to make for his own body and life, and we agreed to a follow-up visit in six months. Orders: Orders Creatinine Urine Today N17.9 - Acute kidney failure, unspecified, N18.31 - Chronic kidney disease, stage 3a, N32.0 - Bladder-neck obstruction Influenza [id number] Immunization Today Z23 - Encounter for immunization Basic Metabolic Panel Today Z00.00 - Encounter for general adult medical examination without abnormal findings Referrals Dermatology Referral L98.9 - Disorder of the skin and subcutaneous tissue, unspecified Patient Instructions: - Please go to the lab to get your kidney function checked with a urine creatinine and GFR test. - You do not need to fast before these tests. - Please keep your appointment with the kidney specialist (crop grain or livestock farmer) scheduled for December 29, 2024. - You have been provided with information on how to manage cholesterol with diet and information on other cholesterol medications. - Please schedule a follow-up appointment to see me in about six months.
--- OUTSIDE RECORDS SUMMARY | 2024-12-10 12:12 | XMS_ITS | Clinical Summary ---
Author Organization [facility] Address [address] [address] Phone Care Team Providers Care Buyer Agent Name Role Phone Unknown, Unknown Primary Care [...] SODIUM 139 133 - 146 mmol/L [facility] POTASSIUM 4.4 3.3 - 5.1 mmol/L [facility] CHLORIDE 104 96 - 108 mmol/L [facility] CO2 21 21 - 35 mmol/L [facility] BUN 14 6 - 19 mg/dL [facility] CREATININE 1.30 0.5 - 1.5 mg/dL [facility] GLUCOSE 103(H) 70 - 99 mg/dL [facility] ALBUMIN 4.6 3.9 - 4.8 g/dL [facility] TOTAL PROTEIN 7.8 6.5 - 8.0 g/dL [facility] CALCIUM 9.5 8.4 - 10.3 mg/dL [facility] ALKALINE PHOSPHATASE 76 39 - 117 U/L [facility] TOTAL BILIRUBIN 0.2 0.0 - 1.2 mg/dL [facility] Comment: Results from certain multiple myeloma patients may show a positive bias in recovery. Not all multiple myeloma patients show the bias and severity of the bias may vary between patients. In very rare cases, gammopathy, in particular type IgM (Waldenstrom's macroglobulinemia), may cause unreliable results. AST 20 0 - 37 U/L [facility] ALT 26 0 - 40 U/L [facility] GLOBULIN 3.2 1 - 4.8 g/dL [facility] EGFR 55(L) >59 mL/min/1.7 3m2 [facility] Comment:If patient is black, multiply result by 1.159. Estimated glomerular filtration rate calculated using the CKD-EPI equation. ANION GAP 18 10 - 20 mmol/L [facility] Blood 05/13/2018 3:32 PM EDT 05/13/2018 3:35 PM EDT rEik Barbosa MD LAB BLOOD ORDERABLES Final Result Performing Organization Address [facility] Co de Phone Number [address] [address] * (ABNORMAL) Lipid panel (05/13/2018 3:32 PM EDT) HDL 43 mg/dL [facility] Comment: Interpretation <40 mg/dL: Low HDL cholesterol (major risk factor for CHD) Greater than or equal to 60 mg/dL: High HDL cholesterol ( negative risk factor for CHD) HDL - cholesterol is affected by a number of factors, e.g. smoking, excerise, hormones, sex and age. CHOLESTEROL 253(H) 0 - 240 mg/dL [facility] TRIGLYCERIDES 211(H) 30 - 160 mg/dL [facility] LDL 168(H) 50 - 129 mg/dL [facility] Comment: LDL levels in terms of risk for coronary heart disease: <100 mg/dL: Optimal 100-129 mg/dL: Near or above optimal 130-159 mg/dL: Borderline high 160-189 mg/dL: High >190 mg/dL: Very High CARDIAC RISK RATIO 5.9(H) 3.4 - 5.0 C [facility] Blood 05/13/2018 3:32 PM EDT 05/13/2018 3:35 PM EDT Erik Barbosa MD LAB BLOOD ORDERABLES Final Result Performing Organization Address [facility] Co de Phone Number [address] [address] from Last 3 Months or Most Recently Relevant to Health Maintenance Insurance [place] [employer] [place] [employer] [place] [employer] [place] [place] [employer] [place] [id number] [place] [phone] [place] [phone] [place] [address] MEDICARE REPLACEMENT [place] [employer] Care Teams Buyer Agent Relationship Specialty Start Date End Date Unknown, Unknown, PCP - General 01/28/20 Additional Source Comments The information contained in this document represents components of the legal health record. It is not the complete legal health record.[facility]
== END 2024-12-10 11:29 | disposition home or self-care (01) ==
LOC: HO.HMCSH 10:03
PROVIDERS: PCP Physician Assistant Medical; Visit Provider Physician Assistant Medical
DX: N18.9 Chronic kidney disease, unspecified (principal); E78.5 Hyperlipidemia, unspecified; K59.00 Constipation, unspecified; Z23 Encounter for immunization

== ENCOUNTER → 2024-12-10 10:03 | Outpatient (BNVA) | payer MEDICARE, SELFPAY | PROVIDERS: PCP Physician Assistant Medical; Visit Provider Physician Assistant Medical | DX: I12.9 Hypertensive chronic kidney disease with stage 1 through stage 4 chronic kidney disease, or unspecified chronic kidney disease (principal); E78.5 Hyperlipidemia, unspecified; K59.00 Constipation, unspecified; N18.31 Chronic kidney disease, stage 3a; N32.0 Bladder-neck obstruction; L98.9 Disorder of the skin and subcutaneous tissue, unspecified; Z28.89 Immunization not carried out for other reason | CPT/HCPCS: 90471; 96127; 99212 ==

== ENCOUNTER → 2024-12-11 09:50 | Outpatient (REF) | payer MEDICARE, SELFPAY ==
--- NOTE | ~2024-12-11 | NM_ITS ---
Lexiscan Myocardial perfusion study Indication: Shortness of breath Technique: The patient was brought in for a Lexiscan perfusion study on 12/11/2024 and was injected 0.4 mg of Lexiscan intravenously. Within a minute of this injection 35 mCi of sestamibi was given intravenously. Images were obtained using the SPECT gamma camera interlaced with the gating device. Images were obtained in supine position. Resting perfusion study was performed on 12/12/2024. Patient was administered 35 mCi of sestamibi intravenously at rest. Images were then obtained in supine position. Total DLP 174 mGy-cm. Images were processed with the software and compared side to side in short axis, horizontal long axis and vertical long axis views. Findings: Raw aquisition reviewed. Arms by the patient's side. The stress perfusion study showed no significant perfusion abnormality. Both uncorrected as well as CT attenuation corrected images were reviewed. The gated study shows normal LV systolic function with calculated LVEF of 60%. LV cavity is normal in size. The gated study shows normal wall thickening and contraction of segments. Resting study shows no significant perfusion abnormality. Gating at rest reveals normal wall motion with ejection fraction at 46%, but visually higher. The findings are consistent with no clear reversible or fixed perfusion defects. NM/NM cardiolite stress test Impression: 1. Myocardial perfusion imaging study shows likely normal myocardial perfusion. 2. Gated LVEF is 60% during stress. 46% during rest but visually appears higher. 3. Transient ischemic dilatation not present. EKG component of the test reported separately. Electronically signed by: Marcellus Mac MD 12/14/2024 01:31 PM [facility]
--- NOTE | 2024-12-11 10:04 | CA_ITS ---
Acquisition Time: 2024-12-11 10:51:10 Total Exercise Time: 00:05:19 Test Indications: Dyspnea AORTIC STENOSIS Medications: AMLODIPINE DOXAZOSIN FINASTERIDE LISINOPRIL METOPROLOL OZEMPIC Protocol: CHASE Max HR: 97 BPM 68% of Pred: 142 BPM Max BP: 144/66 mmHG Max Work Load: 7.0 METS Exercise stress test with exercise 5 mins 19 sec sof Chase Protocol, achieving 68% MPHR, requesting to stop from feeling fatigued, no chest pain. Test switched to Lexiscan. Pharmacological stress test with Lexiscan while pt continued to walk slow on treadmill at 1.0mph, with reports of SOB and abdominal discomfort, without any arrythmias, with normotensive response to injection. Nondiagnostic EKG for ischemia. In recovery, pt treated with IVP Aminophylline 75 mg to reverse Lexiscan after which pt feeling back to baseline. Nuclear images pending. Test reviewed with Dr. Mac. Referred By: Luís Blankenship Electronically Signed By: Dmitri Mays
--- OUTSIDE RECORDS SUMMARY | 2024-12-11 11:35 | XMS_ITS | Clinical Summary ---
Author Organization [facility] Address [address] [address] Phone Care Team Providers Care Ovens Supervisor Name Role Phone Unknown, Unknown Primary Care [...] EDT) SODIUM 139 133 - 146 mmol/L [facility] POTASSIUM 4.4 3.3 - 5.1 mmol/L [facility] CHLORIDE 104 96 - 108 mmol/L [facility] CO2 21 21 - 35 mmol/L [facility] BUN 14 6 - 19 mg/dL [facility] CREATININE 1.30 0.5 - 1.5 mg/dL [facility] GLUCOSE 103(H) 70 - 99 mg/dL [facility] ALBUMIN 4.6 3.9 - 4.8 g/dL [facility] TOTAL PROTEIN 7.8 6.5 - 8.0 g/dL [facility] CALCIUM 9.5 8.4 - 10.3 mg/dL [facility] ALKALINE PHOSPHATASE 76 39 - 117 U/L [facility] TOTAL BILIRUBIN 0.2 0.0 - 1.2 mg/dL [facility] Comment: Results from certain multiple myeloma patients may show a positive bias in recovery. Not all multiple myeloma patients show the bias and severity of the bias may vary between patients. In very rare cases, gammopathy, in particular type IgM (Waldenstrom's macroglobulinemia), may cause unreliable results. AST 20 0 - 37 U/L [facility] ALT 26 0 - 40 U/L [facility] GLOBULIN 3.2 1 - 4.8 g/dL [facility] EGFR 55(L) >59 mL/min/1.7 3m2 [facility] Comment:If patient is black, multiply result by 1.159. Estimated glomerular filtration rate calculated using the CKD-EPI equation. ANION GAP 18 10 - 20 mmol/L [facility] Blood 05/13/2018 3:32 PM EDT 05/13/2018 3:35 PM EDT Erik Barbosa MD LAB BLOOD ORDERABLES Final Result Performing Organization Address [facility] Co de Phone Number [address] [address] * (ABNORMAL) Lipid panel (05/13/2018 3:32 PM EDT) HDL 43 mg/dL [facility] Comment: Interpretation <40 mg/dL: Low HDL cholesterol (major risk factor for CHD) Greater than or equal to 60 mg/dL: High HDL cholesterol ( negative risk factor for CHD) HDL - cholesterol is affected by a number of factors, e.g. smoking, excerise, hormones, sex and age. CHOLESTEROL 253(H) 0 - 240 mg/dL [facility] TRIGLYCERIDES 211(H) 30 - 160 mg/dL [facility] LDL 168(H) 50 - 129 mg/dL [facility] Comment: LDL levels in terms of risk for coronary heart disease: <100 mg/dL: Optimal 100-129 mg/dL: Near or above optimal 130-159 mg/dL: Borderline high 160-189 mg/dL: High >190 mg/dL: Very High CARDIAC RISK RATIO 5.9(H) 3.4 - 5.0 C [facility] Blood 05/13/2018 3:32 PM EDT 05/13/2018 3:35 PM EDT Erik Barbosa MD LAB BLOOD ORDERABLES Final Result Performing Organization Address [facility] Co de Phone Number [address] [address] from Last 3 Months or Most Recently Relevant to Health Maintenance Insurance [place] [employer] [place] [employer] [place] [employer] [place] [employer] [place] [id number] [place] [id number] [place] [id number] [place] [address] MEDICARE REPLACEMENT [place] [employer] Care Teams Ovens Supervisor Relationship Specialty Start Date End Date Unknown, Unknown, PCP - General 01/28/20 Additional Source Comments The information contained in this document represents components of the legal health record. It is not the complete legal health record.[facility]
== END ==
LOC: HO.CARD 09:50
PROVIDERS: PCP Physician Assistant Medical; Visit Provider Internal Medicine Cardiovascular Disease
DX: R06.02 Shortness of breath (principal); R07.9 Chest pain, unspecified
CPT/HCPCS: 78452; 93017; A9500; J0280; J2785

== ENCOUNTER → 2024-12-11 10:04 | Outpatient (BNV) | payer MEDICARE, SELFPAY | PROVIDERS: PCP Physician Assistant Medical | DX: R06.02 Shortness of breath (principal); R10.9 Unspecified abdominal pain | CPT/HCPCS: 78452; 93016; 93018 ==

== ENCOUNTER 2024-12-12 12:10 | Outpatient (REF) | payer MEDICARE, SELFPAY ==
[2024-12-12 13:11] LABS: Anion Gap 12 (12-20); Blood Urea Nitrogen 20 mg/dL (9-16); Calcium 9.4 mg/dL (8.4-10.2); Carbon Dioxide 27 mmol/L (22-29); Chloride 105 mmol/L (96-108); Cholesterol 154 mg/dL (<200); Estimated Glomerular Filt Rate 48; HDL Cholesterol 31 mg/dL (>40); Potassium 4.2 mmol/L (3.3-5.1); Sodium 140 mmol/L (135-145); Triglycerides 158 mg/dL (<150)
--- OUTSIDE RECORDS SUMMARY | 2024-12-12 13:43 | XMS_ITS | Clinical Summary ---
Author Organization [facility] Address [address] [address] Phone Care Team Providers Care Gridcap Machine Operator Name Role Phone Unknown, Unknown Primary Care [...] EDT) SODIUM 139 133 - 146 mmol/L [facility] POTASSIUM 4.4 3.3 - 5.1 mmol/L [facility] CHLORIDE 104 96 - 108 mmol/L [facility] CO2 21 21 - 35 mmol/L [facility] BUN 14 6 - 19 mg/dL [facility] CREATININE 1.30 0.5 - 1.5 mg/dL [facility] GLUCOSE 103(H) 70 - 99 mg/dL [facility] ALBUMIN 4.6 3.9 - 4.8 g/dL [facility] TOTAL PROTEIN 7.8 6.5 - 8.0 g/dL [facility] CALCIUM 9.5 8.4 - 10.3 mg/dL [facility] ALKALINE PHOSPHATASE 76 39 - 117 U/L [facility] TOTAL BILIRUBIN 0.2 0.0 - 1.2 mg/dL [facility] Comment: Results from certain multiple myeloma patients may show a positive bias in recovery. Not all multiple myeloma patients show the bias and severity of the bias may vary between patients. In very rare cases, gammopathy, in particular type IgM (Waldenstrom's macroglobulinemia), may cause unreliable results. AST 20 0 - 37 U/L [facility] ALT 26 0 - 40 U/L [facility] GLOBULIN 3.2 1 - 4.8 g/dL [facility] EGFR 55(L) >59 mL/min/1.7 3m2 [facility] Comment:If patient is black, multiply result by 1.159. Estimated glomerular filtration rate calculated using the CKD-EPI equation. ANION GAP 18 10 - 20 mmol/L [facility] Blood 05/13/2018 3:32 PM EDT 05/13/2018 3:35 PM EDT Erik Barbosa MD LAB BLOOD ORDERABLES Final Result Performing Organization Address [facility] Co de Phone Number [address] [address] * (ABNORMAL) Lipid panel (05/13/2018 3:32 PM EDT) HDL 43 mg/dL [facility] Comment: Interpretation <40 mg/dL: Low HDL cholesterol (major risk factor for CHD) Greater than or equal to 60 mg/dL: High HDL cholesterol ( negative risk factor for CHD) HDL - cholesterol is affected by a number of factors, e.g. smoking, excerise, hormones, sex and age. CHOLESTEROL 253(H) 0 - 240 mg/dL [facility] TRIGLYCERIDES 211(H) 30 - 160 mg/dL [facility] LDL 168(H) 50 - 129 mg/dL [facility] Comment: LDL levels in terms of risk for coronary heart disease: <100 mg/dL: Optimal 100-129 mg/dL: Near or above optimal 130-159 mg/dL: Borderline high 160-189 mg/dL: High >190 mg/dL: Very High CARDIAC RISK RATIO 5.9(H) 3.4 - 5.0 C [facility] Blood 05/13/2018 3:32 PM EDT 05/13/2018 3:35 PM EDT Erik Barbosa MD LAB BLOOD ORDERABLES Final Result Performing Organization Address [facility] Co de Phone Number [address] [address] from Last 3 Months or Most Recently Relevant to Health Maintenance Insurance [place] [employer] [place] [employer] [place] [employer] [place] [employer] [place] [phone] [place] [id number] [place] [id number] [place] [address] MEDICARE REPLACEMENT [place] [employer] Care Teams Gridcap Machine Operator Relationship Specialty Start Date End Date Unknown, Unknown, PCP - General 01/28/20 Additional Source Comments The information contained in this document represents components of the legal health record. It is not the complete legal health record.[facility]
== END 2024-12-12 12:11 | disposition home or self-care (01) ==
LOC: HO.LAB 12:10
PROVIDERS: Absent Provider Physician Assistant Medical; PCP Physician Assistant Medical; Visit Provider Internal Medicine Cardiovascular Disease
DX: Z00.00 Encounter for general adult medical examination without abnormal findings (principal); N18.31 Chronic kidney disease, stage 3a; N17.9 Acute kidney failure, unspecified; N32.0 Bladder-neck obstruction; I25.10 Atherosclerotic heart disease of native coronary artery without angina pectoris; E78.00 Pure hypercholesterolemia, unspecified
CPT/HCPCS: 36415; 80048; 80061; 82570

== ENCOUNTER → 2024-12-17 15:00 | Outpatient (REF) | payer MEDICARE, SELFPAY ==
--- NOTE | ~2024-12-17 | US_ITS ---
EXAMINATION: US NONINVASIVE ASSESSMENT OF THE BILATERAL LOWER EXTREMITY. CLINICAL INFORMATION: COMPARISON: None TECHNIQUE: Duplex Doppler techniques with waveform analysis and measurement of velocities in the common femoral, profunda femoris, superficial femoral, popliteal and tibial arteries were performed. The study was performed only at rest. FINDINGS: RIGHT LOWER EXTREMITY DUPLEX ULTRASOUND: Common femoral artery: 118 cm/s. Diastolic flow reversal: Biphasic Profunda femoris artery: 245 cm/s. Diastolic flow reversal: Biphasic Superficial femoral artery (proximal): 105 cm/s. Diastolic flow reversal: Biphasic Superficial femoral artery (mid): 73 cm/s. Diastolic flow reversal: Biphasic Superficial femoral artery (distal): 128 cm/s. Vessel wall calcification and luminal narrowing. Diastolic flow reversal: Monophasic Popliteal artery: 72 cm/s. Vessel wall calcification and luminal narrowing proximally. This appears more normal in caliber distally. Diastolic flow reversal: Monophasic Posterior tibial artery: 123 cm/s Diastolic flow reversal: Triphasic The right anterior tibial and peroneal arteries and dorsalis pedis arteries are patent with monophasic flow. LOWER EXTREMITY DUPLEX ULTRASOUND: Common femoral artery: 159 cm/s. Diastolic flow reversal: Triphasic Profunda femoris artery: 127 cm/s. Diastolic flow reversal: Biphasic Superficial femoral artery (proximal): 81 cm/s. Diastolic flow reversal: Triphasic Superficial femoral artery (mid): 123 cm/s. Diastolic flow reversal: Biphasic Superficial femoral artery (distal): 109 cm/s. Diastolic flow reversal: Triphasic Popliteal artery: 179 cm/s Diastolic flow reversal: Biphasic Posterior tibial artery: 143 cm/s Diastolic flow reversal: Triphasic The left anterior tibial, peroneal and dorsalis pedis arteries are patent with biphasic to triphasic flow. US/US arterial duplex LE BI IMPRESSION: Right: Peak systolic velocities suggest mild to moderate atherosclerotic disease. Distal SFA and proximal popliteal artery disease with vessel wall calcification, luminal narrowing and monophasic flow. There is also increased peak systolic velocity in the right proximal profunda. Left: Mild atherosclerotic disease by peak systolic velocities. Electronically signed by: Louise Mabry MD 12/17/2024 04:05 PM [facility]
--- OUTSIDE RECORDS SUMMARY | 2024-12-17 18:03 | XMS_ITS | Clinical Summary ---
Author Organization [facility] Address [address] [address] Phone Care Team Providers Care Dredge Mate Name Role Phone Unknown, Unknown Primary Care [...] PM EDT Essential hypertension COMPREHENSIVE METABOLIC PANEL (CMP) Routine 05/13/2018 3:32 PM EDT Essential hypertension from Last 3 Months or Most Recently Relevant to Health Maintenance Results * (ABNORMAL) Comprehensive metabolic panel (05/13/2018 3:32 PM EDT) SODIUM 139 133 - 146 mmol/L [facility] POTASSIUM 4.4 3.3 - 5.1 mmol/L [facility] CHLORIDE 104 96 - 108 mmol/L [facility] CO2 21 21 - 35 mmol/L [facility] BUN 14 6 - 19 mg/dL [facility] CREATININE 1.30 0.5 - 1.5 mg/dL [facility] GLUCOSE 103(H) 70 - 99 mg/dL [facility] ALBUMIN 4.6 3.9 - 4.8 g/dL [facility] TOTAL PROTEIN 7.8 6.5 - 8.0 g/dL [facility] CALCIUM 9.5 8.4 - 10.3 mg/dL [facility] ALKALINE PHOSPHATASE 76 39 - 117 U/L [facility] TOTAL BILIRUBIN 0.2 0.0 - 1.2 mg/dL [facility] Comment: Results from certain multiple myeloma patients may show a positive bias in recovery. Not all multiple myeloma patients show the bias and severity of the bias may vary between patients. In very rare cases, gammopathy, in particular type IgM (Waldenstrom's macroglobulinemia), may cause unreliable results. AST 20 0 - 37 U/L [facility] ALT 26 0 - 40 U/L [facility] GLOBULIN 3.2 1 - 4.8 g/dL [facility] EGFR 55(L) >59 mL/min/1.7 3m2 [facility] Comment:If patient is black, multiply result by 1.159. Estimated glomerular filtration rate calculated using the CKD-EPI equation. ANION GAP 18 10 - 20 mmol/L [facility] Blood 05/13/2018 3:32 PM EDT 05/13/2018 3:35 PM EDT Erik Barbosa MD LAB BLOOD BKR ORDERABLES F inal Result Performing Organization Address [facility] Co de Phone Number [address] [address] * (ABNORMAL) Lipid panel (05/13/2018 3:32 PM EDT) HDL 43 mg/dL [facility] Comment: Interpretation <40 mg/dL: Low HDL cholesterol (major risk factor for CHD) Greater than or equal to 60 mg/dL: High HDL cholesterol ( negative risk factor for CHD) HDL - cholesterol is affected by a number of factors, e.g. smoking, excerise, hormones, sex and age. CHOLESTEROL 253(H) 0 - 240 mg/dL [facility] TRIGLYCERIDES 211(H) 30 - 160 mg/dL [facility] LDL 168(H) 50 - 129 mg/dL [facility] Comment: LDL levels in terms of risk for coronary heart disease: <100 mg/dL: Optimal 100-129 mg/dL: Near or above optimal 130-159 mg/dL: Borderline high 160-189 mg/dL: High >190 mg/dL: Very High CARDIAC RISK RATIO 5.9(H) 3.4 - 5.0 C [facility] Blood 05/13/2018 3:32 PM EDT 05/13/2018 3:35 PM EDT Erik Barbosa MD LAB BLOOD BKR ORDERABLES F inal Result Performing Organization Address [facility] Co de Phone Number [address] [address] from Last 3 Months or Most Recently Relevant to Health Maintenance Insurance [place] [id number] [employer] [place] [id number] [employer] [place] [phone] MEDICARE REPLACEMENT MEDICARE REPLACEMENT [place] [address] MEDICARE REPLACEMENT [employer] Care Teams Dredge Mate Relationship Specialty Start Date End Date Unknown, Unknown, PCP - General 01/28/20 Additional Source Comments The information contained in this document represents components of the legal health record. It is not the complete legal health record.[facility]
== END ==
LOC: HO.CARD 15:00
PROVIDERS: PCP Physician Assistant Medical; Visit Provider Internal Medicine Cardiovascular Disease
DX: I35.0 Nonrheumatic aortic (valve) stenosis (principal); I73.9 Peripheral vascular disease, unspecified
CPT/HCPCS: 93925

== ENCOUNTER → 2024-12-17 15:02 | Outpatient (BNV) | payer MEDICARE, SELFPAY | PROVIDERS: PCP Physician Assistant Medical; Visit Provider Radiology Diagnostic Radiology | DX: I70.202 Unspecified atherosclerosis of native arteries of extremities, left leg (principal) | CPT/HCPCS: 93925 ==

== ENCOUNTER → 2024-12-25 07:47 | Outpatient (REF) | payer MEDICARE, SELFPAY ==
--- NOTE | 2024-12-25 07:49 | CA_ITS ---
Transthoracic Echocardiogram Patient (Last, First, Middle): Mario Mosquera, Gender: M Date of : 1945 Age: 79 Procedure Date: 12/25/2024 Procedure Type: Transthoracic Echocardiogram Location: OP Height: 172.72 cm Weight: 97.98 kg BSA: 2.11 m2 Heart Rate: bpm BP: 148 / 66 mmHg [employer] Tutor: JHOAN Referring MD: Luís Blankenship MD Gear Shaper Set Up Operator: Luís Blankenship MD Symptoms: I35.0 - Nonrheumatic aortic (valve) stenosis Study Quality: Adequate ECG Rhythm: Sinus Conclusions: - 1. Normal LV ejection fraction of 65-70% with impaired relaxation filling pattern 2. Calcified aortic valve with moderate to severe aortic stenosis with mild aortic regurgitation 3. Mildly dilated ascending aorta 4. No gross pericardial effusion Findings Left Ventricle Normal left ventricular size, thickness, and systolic function. The visually estimated ejection fraction is between 65-70%. Spectral Doppler is indicative of an impaired relaxation filling pattern. There is moderate septal asymmetric hypertrophy. Right Ventricle Normal right ventricular cavity size and systolic function. Atria The left atrium is likely dilated. There is no evidence of interatrial shunt. The right atrium is normal in size. Aortic Valve There is moderate calcification of the aortic valve. There is moderate thickening of the aortic valve. There is moderate to severe aortic valve stenosis. The peak aortic gradient is 50 mmHg.The mean gradient is 30 mmHg. The aortic valve area is 1.18 cm2. There is mild aortic valve regurgitation. Mitral Valve There is mild anterior and severe posterior mitral leaflet thickening. There is severe mitral annular calcification. There is trace mitral valve regurgitation. There is no mitral valve stenosis. Pulmonic Valve The pulmonic valve was not well visualized. Tricuspid Valve Likely normal tricuspid valve structure and function. Tricuspid regurgitation envelope is inadequate for calculation of right ventricular systolic pressure. Normal right atrial pressure. Great Vessels The pulmonary artery was not well visualized. There is mild dilatation of the ascending aorta measuring 3.90 cm. Small plaque is seen in the sino tubular ridge. Venous The inferior vena cava is normal in size and collapses greater than 50% with inspiration. Pericardium/Pleural There is no evidence of pericardial effusion. Prior Study Comparison No prior study available for comparison. Measurements 2D Linear Measurements IVSd: 1.15 0.6-0.9/0.6-1.0 cm LVIDd: 5.13 3.9-5.3/4.2-5.9 cm LVIDd Index: 2.43 2.4-3.2/2.2-3.1 cm/m2 LVIDs: 2.89 2.0-3.6 cm LVPWd: 1.10 0.7-1.1 cm LA Diam: 3.90 2.7-3.8/3.0-4.0 cm LAIDs Index: 1.85 1.5-2.3 cm/m2 LV Mass: 277.62 67-162/88-224 g LV Mass Index: 131.57 43-95/49-115 g/m2 LVOT Diam: 2.20 3.0+(-)1.3 cm 2D Systolic Function EF 4C: 73.00 >55% EF 2C: 66.30 >55% EF BiP: 69.00 >55% Mitral Valve MV Pk E: 1.02 MV PK A: 1.38 MV Decel Time: 255.00 E/A: 0.70 E'Lateral: 6.85 E'Medial: 5.22 E/E' Med: 19.50 E/E' Lat: 14.90 PHT: 75.00 MVA PHT: 2.93 Decel Foster: 4.00 Aortic Valve AoV Pk Wilton: 3.55 AoV Mn Wilton: 2.58 AoV VTI: 0.89 AoV Pk Grad: 50.00 Aov Mn Grad: 30.00 ADOLFO Cont.VTI: 1.18 AI Pk Wilton: 4.63 AI Foster: 2.61 LVOT LVOT Pk Wilton: 1.08 LVOT Mn Wilton: 0.76 LVOT VTI: 0.28 LVOT Pk Grad: 5.00 LVOT Mn Grad: 3.00 LVOT Diam: 2.20 LVOT Area: 3.80 Diastolic Function MV Pk E: 1.02 MV Pk A: 1.38 E/A: 0.70 E'Medial: 5.22 E/E' Med: 19.50 E' Laterial: 6.85 E/E' Lat: 14.90 Right Ventricle TAPSE (mm): 24.50 TVS' Wilton: 10.20 Tricuspid Valve RA Press: 3.00 Great Vessels Aorta Sinus of Valsalva: 4.00 2.0-3.[address] Ridge: 2.84 1.7-3.4 cm Ao Asc: 3.90 2.1-3.4 cm Updated in Other Vendor System with Status of Final Luís Blankenship MD electronically signed on 12/26/2024 2:51:57 PM with status of Final
--- OUTSIDE RECORDS SUMMARY | 2024-12-25 07:49 | XMS_ITS | Clinical Summary ---
Author Organization [facility] Address [address] [address] Phone Care Team Providers Care Onion Tier Name Role Phone Unknown, Unknown Primary Care [...] VACCINES (50+ years) (2 of 2 - PCV20 or PCV21) 04/13/2020 04/14/2019 RSV VACCINE (1 - 1-dose 75+ series) 2021 LIPID PANEL 05/14/2023 05/13/2018, 05/13/2018 INFLUENZA VACCINE (#1) 2024 , 10/12/2018, 10/12/2018, Additional history exists COVID-19 VACCINE (2 - 2024- season) 2024 06/10/2020 Adult Td,Tdap Booster 03/13/2029 03/13/2019 HEPATITIS C SCREENING Completed 09/14/2017 ZOSTER VACCINES Completed 02/20/2020, 10/06/2019 HEPATITIS A VACCINES Aged Out No long er eligible based on patient's age to complete this topic HIB VACCINES Aged Out No longer eligi ble based on patient's age to complete this topic IPV VACCINES Aged Out No longer eligi ble [...] EDT) SODIUM 139 133 - 146 mmol/L [facility] POTASSIUM 4.4 3.3 - 5.1 mmol/L [facility] CHLORIDE 104 96 - 108 mmol/L [facility] CO2 21 21 - 35 mmol/L [facility] BUN 14 6 - 19 mg/dL [facility] CREATININE 1.30 0.5 - 1.5 mg/dL [facility] GLUCOSE 103(H) 70 - 99 mg/dL [facility] ALBUMIN 4.6 3.9 - 4.8 g/dL [facility] TOTAL PROTEIN 7.8 6.5 - 8.0 g/dL [facility] CALCIUM 9.5 8.4 - 10.3 mg/dL [facility] ALKALINE PHOSPHATASE 76 39 - 117 U/L [facility] TOTAL BILIRUBIN 0.2 0.0 - 1.2 mg/dL [facility] Comment: Results from certain multiple myeloma patients may show a positive bias in recovery. Not all multiple myeloma patients show the bias and severity of the bias may vary between patients. In very rare cases, gammopathy, in particular type IgM (Waldenstrom's macroglobulinemia), may cause unreliable results. AST 20 0 - 37 U/L [facility] ALT 26 0 - 40 U/L [facility] GLOBULIN 3.2 1 - 4.8 g/dL [facility] EGFR 55(L) >59 mL/min/1.7 3m2 [facility] Comment:If patient is black, multiply result by 1.159. Estimated glomerular filtration rate calculated using the CKD-EPI equation. ANION GAP 18 10 - 20 mmol/L [facility] Blood 05/13/2018 3:32 PM EDT 05/13/2018 3:35 PM EDT Erik Barbosa MD LAB BLOOD BKR ORDERABLES F inal Result Performing Organization Address [facility] Co de Phone Number [address] [address] * (ABNORMAL) Lipid panel (05/13/2018 3:32 PM EDT) HDL 43 mg/dL [facility] Comment: Interpretation <40 mg/dL: Low HDL cholesterol (major risk factor for CHD) Greater than or equal to 60 mg/dL: High HDL cholesterol ( negative risk factor for CHD) HDL - cholesterol is affected by a number of factors, e.g. smoking, excerise, hormones, sex and age. CHOLESTEROL 253(H) 0 - 240 mg/dL [facility] TRIGLYCERIDES 211(H) 30 - 160 mg/dL [facility] LDL 168(H) 50 - 129 mg/dL [facility] Comment: LDL levels in terms of risk for coronary heart disease: <100 mg/dL: Optimal 100-129 mg/dL: Near or above optimal 130-159 mg/dL: Borderline high 160-189 mg/dL: High >190 mg/dL: Very High CARDIAC RISK RATIO 5.9(H) 3.4 - 5.0 [facility] Blood 05/13/2018 3:32 PM EDT 05/13/2018 3:35 PM EDT Erik Barbosa MD LAB BLOOD BKR ORDERABLES F inal Result Performing Organization Address [facility]/ZIP Co de Phone Number [address] [address] from Last 3 Months or Most Recently Relevant to Health Maintenance Insurance [employer] [id number] [place] [id number] [place] [id number] [place] [employer] [place] [employer] [place] [employer] [employer] Care Teams Onion Tier Relationship Specialty Start Date End Date Unknown, Unknown, PCP - General 01/28/20 Additional Source Comments The information contained in this document represents components of the legal health record. It is not the complete legal health record.[facility]
== END ==
LOC: HO.CARD 07:47
PROVIDERS: PCP Physician Assistant Medical; Visit Provider Internal Medicine Cardiovascular Disease
DX: I35.0 Nonrheumatic aortic (valve) stenosis (principal)
CPT/HCPCS: 93306

== ENCOUNTER → 2024-12-25 07:49 | Outpatient (BNV) | payer MEDICARE, SELFPAY | PROVIDERS: PCP Physician Assistant Medical; Visit Provider Internal Medicine Cardiovascular Disease | DX: I42.2 Other hypertrophic cardiomyopathy (principal); I35.2 Nonrheumatic aortic (valve) stenosis with insufficiency; I77.810 Thoracic aortic ectasia | CPT/HCPCS: 93306 ==

== ENCOUNTER 2024-12-30 11:15 | Outpatient (AMB) | payer MEDICARE, SELFPAY ==
[2024-12-30 11:19] VITALS: BP 110/78; PULSE 64; BMI 31.5
--- NOTE | 2024-12-30 11:19 | A.OFFVIS_ITS ---
Vital Signs 12/30/24 11:19 Height 5 ft 8 in Weight 207 lb 3.752 oz BMI 31.5 BP 110/78 Blood Pressure Location Lt brachial Position Sitting Pulse 64 Intake Visit Reasons: 2 mth fu after labs, stress/ echo and ul. Intake Note: Follow-up after stress and echo c/o palpitations and skipped beats Spinning And Winding Supervisor Required: No Deposition Reporter: Deposition Reporter Present Accompanied by: Spouse Allergies Seasonal Allergies Allergy (Mild, Verified 12/10/24 11:31) Unknown Medication List - Last Reconciled 12/30/24 by Luís Blankenship MD amlodipine 10 mg PO DAILY aspirin (Ecotrin Low Strength) 81 mg PO DAILY doxazosin 4 mg (1/2 x 8 mg) PO QPM 30 days finasteride 5 mg PO DAILY 90 days lisinopril 40 mg PO DAILY metoprolol succinate ER 100 mg PO DAILY rosuvastatin 20 mg PO DAILY semaglutide (Ozempic) mg subcut testosterone 10 mg/0.5 gram /actuation 1 pump transdermal QAM 3 months testosterone 1 pump topical DAILY HPI Comments Details: Mario comes for follow-up. He said he gets intermittent episodes of frequent pal pitation fluttering in his chest with the associated lightheadedness. He had associated these symptoms of him taking magnesium for his constipation. He denies any clear significant exertional chest pain or shortness of breath. Continues to have right calf discomfort although he said he does not exercise much. Recent stress test did not show any evidence of ischemia. Recent lower extremity duplex suggest disease in his right SFA. His echocardiogram shows moderately severe aortic stenosis. [facility] Medical History Constipation Skin lesion CKD stage 3a, GFR 45-59 ml/min ANNALISA (acute kidney injury) Hypogonadism male Elevated triglycerides with high cholesterol Hyperlipidemia LDL goal <100 Cerumen impaction Low testosterone Chronic constipation Establishing care with new doctor, encounter for Heart murmur Chronic kidney disease Chronic sinus bradycardia Cataract Retinopathy Glaucoma, narrow-angle Hypertension Hypercholesterolemia Diabetes mellitus Surgical History History of colonoscopy Family History Mother No problems noted. Father Diabetes Cardiovascular disease Heart problem Social History Housing: House Alcohol intake: current Alcohol intake frequency: does not drink Patient Tobacco Use Status: Former Tobacco user service: No Current occupational status: retired Cognitive needs: No Hearing needs: No Vision needs: No Review of Systems Const Denies chills, Denies fatigue, Denies fever(s), Denies frequent falls, Denies weakness, Denies weight gain and Denies weight loss ENT Denies dizziness Card Denies chest pain, Denies leg edema, Denies lightheadedness, Denies palpitations, Denies dyspnea, Denies dyspnea on exertion, Denies orthopnea and Denies other (loss of consciousness) Resp Denies cough, Denies dyspnea and Denies dyspnea on exertion GI Denies hematochezia and Denies change in stool character Musc Denies abnormal gait, Denies muscle weakness, Denies numbness, Denies radiating pain into limb and Denies tingling Neuro Denies abnormal gait, Denies dizziness, Denies frequent falls, Denies numbness, Denies tingling and Denies weakness Endo Denies fatigue and Denies palpitations Physical Exam Vital Signs: Last Vital Signs Pulse 64 12/30/24 11:19 BP 110/78 12/30/24 11:19 BMI result Body Mass Index 31.5 Const General: cooperative, comfortable, no acute distress, alert and awake Nutritional Appearance: obese Orientation/consciousness: patient oriented x3 Limitations: no limitations HEENT Head: Yes normocephalic and Yes atraumatic Neck Neck: Yes trachea midline, Yes supple and Yes no JVD Resp Effort & Inspection: normal respiratory effort Auscultation: clear to auscultation bilaterally Cardio Jugular venous distension: no JVD Rate: regular rate Rhythm: regular rhythm Heart sounds: S1 normal heart sound present, S2 normal heart sound present, no click, no gallops and Murmur heart sound present systolic late, decrescendo and crescendo Skin General skin exam: no rashes or lesions noted Neuro General: patient oriented x3 and no focal motor deficits Extrem General: Yes no clubbing, cyanosis or edema Assessment & Plan Assessment & Plan (1) Aortic stenosis: Code(s): I35.0 - Nonrheumatic aortic (valve) stenosis Category: Medical Plan: Aortic stenosis with moderately severe severe already. Discussed with him about the findings of aortic stenosis. Gradually progressive nature of aortic stenosis were discussed. We also discussed about potential transcatheter aortic valve replacement. He currently he is not having any significant symptoms. Cardinal symptoms associated with aortic stenosis were discussed. Follow-up echocardiogram in 6 months time. Follow-up after that. (2) Palpitations: Code(s): R00.2 - Palpitations Plan: Symptoms symptoms of intermittent palpitations which appear to be extra systoles. Atrial fibrillation needs to rule out. Will suggest a 7 day Holter monitor to assess for the same. Also check for baseline magnesium and potassium levels. Need to replace as need be. Would avoid any medical therapy at this point in time. (3) Peripheral vascular disease: Code(s): I73.9 - Peripheral vascular disease, unspecified Category: Medical Plan: Patient was symptoms suggestive of right calf claudication with associated peripheral vascular disease. Discussed about referral to vascular surgery but he wants to hold off on now has says too many things happening with him. Discussed about management including gradually increasing activity level and exercise level. Continue aggressive medical therapy including low-dose aspirin therapy aggressive blood pressure control as well as high-intensity statin therapy. Target goal LDL less than 60 mg/dL. Will follow up in the clinic in 6 months time, sooner PRN. Thank you for allowing me to partake in his care Orders: Orders Basic Metabolic Panel Today I35.0 - Nonrheumatic aortic (valve) stenosis CA echo transthoracic complete 6 Months I35.0 - Nonrheumatic aortic (valve) stenosis Magnesium Today I35.0 - Nonrheumatic aortic (valve) stenosis ECG 7 day holter monitor Today R00.2 - Palpitations Coding Level of Care Code Est Pt Level 4 (48203) Complex EM visit Add On G2211 Diagnoses Aortic stenosis I35.0 Palpitations R00.2 Peripheral vascular disease I73.9
== END 2024-12-30 11:49 | disposition home or self-care (01) ==
LOC: HO.HCS 11:15
PROVIDERS: PCP Physician Assistant Medical; Visit Provider Internal Medicine Cardiovascular Disease
DX: I35.0 Nonrheumatic aortic (valve) stenosis (principal); R00.2 Palpitations; I73.9 Peripheral vascular disease, unspecified
CPT/HCPCS: 99214; G2211

== ENCOUNTER 2024-12-30 11:15 | Outpatient (REF) | payer MEDICARE, SELFPAY ==
[2024-12-30 14:23] LABS: Anion Gap 10 (12-20); Blood Urea Nitrogen 24 mg/dL (9-16); Calcium 9.6 mg/dL (8.4-10.2); Carbon Dioxide 25 mmol/L (22-29); Chloride 109 mmol/L (96-108); Estimated Glomerular Filt Rate 43; Magnesium 2.4 mg/dL (1.6-2.6); Potassium 4.9 mmol/L (3.3-5.1); Sodium 139 mmol/L (135-145)
--- OUTSIDE RECORDS SUMMARY | 2024-12-31 03:46 | XMS_ITS | Clinical Summary ---
Author Organization [facility] Address [address] [address] Phone Care Team Providers Care Restrooms Or Lounges Maid Name Role Phone Unknown, Unknown Primary Care [...] EDT) SODIUM 139 133 - 146 mmol/L [facility] POTASSIUM 4.4 3.3 - 5.1 mmol/L [facility] CHLORIDE 104 96 - 108 mmol/L [facility] CO2 21 21 - 35 mmol/L [facility] BUN 14 6 - 19 mg/dL [facility] CREATININE 1.30 0.5 - 1.5 mg/dL [facility] GLUCOSE 103(H) 70 - 99 mg/dL [facility] ALBUMIN 4.6 3.9 - 4.8 g/dL [facility] TOTAL PROTEIN 7.8 6.5 - 8.0 g/dL [facility] CALCIUM 9.5 8.4 - 10.3 mg/dL [facility] ALKALINE PHOSPHATASE 76 39 - 117 U/L [facility] TOTAL BILIRUBIN 0.2 0.0 - 1.2 mg/dL [facility] Comment: Results from certain multiple myeloma patients may show a positive bias in recovery. Not all multiple myeloma patients show the bias and severity of the bias may vary between patients. In very rare cases, gammopathy, in particular type IgM (Waldenstrom's macroglobulinemia), may cause unreliable results. AST 20 0 - 37 U/L [facility] ALT 26 0 - 40 U/L [facility] GLOBULIN 3.2 1 - 4.8 g/dL [facility] EGFR 55(L) >59 mL/min/1.7 3m2 [facility] Comment:If patient is black, multiply result by 1.159. Estimated glomerular filtration rate calculated using the CKD-EPI equation. ANION GAP 18 10 - 20 mmol/L [facility] Blood 05/13/2018 3:32 PM EDT 05/13/2018 3:35 PM EDT Erik Barbosa MD LAB BLOOD BKR ORDERABLES F inal Result Performing Organization Address [facility] Co de Phone Number [address] [address] * (ABNORMAL) Lipid panel (05/13/2018 3:32 PM EDT) HDL 43 mg/dL [facility] Comment: Interpretation <40 mg/dL: Low HDL cholesterol (major risk factor for CHD) Greater than or equal to 60 mg/dL: High HDL cholesterol ( negative risk factor for CHD) HDL - cholesterol is affected by a number of factors, e.g. smoking, excerise, hormones, sex and age. CHOLESTEROL 253(H) 0 - 240 mg/dL [facility] TRIGLYCERIDES 211(H) 30 - 160 mg/dL [facility] LDL 168(H) 50 - 129 mg/dL [facility] Comment: LDL levels in terms of risk for coronary heart disease: <100 mg/dL: Optimal 100-129 mg/dL: Near or above optimal 130-159 mg/dL: Borderline high 160-189 mg/dL: High >190 mg/dL: Very High CARDIAC RISK RATIO 5.9(H) 3.4 - 5.0 C [facility] Blood 05/13/2018 3:32 PM EDT 05/13/2018 3:35 PM EDT Erik Barbosa MD LAB BLOOD BKR ORDERABLES F inal Result Performing Organization Address [facility] Co de Phone Number [address] [address] from Last 3 Months or Most Recently Relevant to Health Maintenance Insurance [employer] [place] [id number] [address] [address] MEDICARE [place]PLACEMENT [employer] [place] [id number] [employer] Care Teams Restrooms Or Lounges Maid Relationship Specialty Start Date End Date Unknown, Unknown, PCP - General 01/28/20 Additional Source Comments The information contained in this document represents components of the legal health record. It is not the complete legal health record.[facility]
== END 2024-12-30 11:16 | disposition home or self-care (01) ==
LOC: HO.LAB 11:15
PROVIDERS: PCP Physician Assistant Medical; Visit Provider Internal Medicine Cardiovascular Disease
DX: I35.0 Nonrheumatic aortic (valve) stenosis (principal); I73.9 Peripheral vascular disease, unspecified; Z79.82 Long term (current) use of aspirin
CPT/HCPCS: 36415; 80048; 83735; 99212

== ENCOUNTER 2025-01-13 10:48 | Outpatient (AMB) | payer MEDICARE, SELFPAY ==
[2025-01-13 10:51] VITALS: BP 140/63; PULSE 60; RESP 14; TEMP 36.4; O2SAT 98; BMI 33.6
--- NOTE | 2025-01-13 10:51 | A.OFFPC_ITS ---
Vital Signs 01/13/25 10:51 Height 5 ft 8 in Weight 221 lb BMI 33.6 BP 140/63 H Blood Pressure Location Rt brachial Position Sitting Respiration 14 Pulse 60 Pulse Source Pulse Oximeter Temp 97.6 F Temp Source Temporal Artery Scan Pulse Oximetry (%) 98 Oxygen Delivery Method Room Air Intake Visit Reasons: 1 Month follow up Education Trainer Required: No Accompanied by: Spouse Allergies Seasonal Allergies Allergy (Mild, Verified 01/13/25 10:51) Unknown Tobacco use date assessed: 06/04/24 Dental Screening Dental Screen Date: 06/04/24 HPI HPI Comments History of Present Illness Details History of Present Illness - The patient is a 79 year old individua l presenting for medication review and management. - Hypertension is managed with amlodipin e, lisinopril 40 mg, and metoprolol 100 mg. - The patient reports taking half of an 8 mg doxazosin tablet because the full dose caused sedation. - The patient has a history of heart dis ease, having been born with a heart murmur and later diagnosed with aortic stenosis, for which a procedure may eventually be needed. - The patient also reports possible clark rial blockages in the legs. - The patient was prescribed rosuvastati n but stopped taking it against medical advice due to experiencing fatigue; the patient reports increased energy after discontinuation. - The patient has been on testosterone r eplacement therapy for approximately two decades, currently using a 10 mg pump daily. - The patient reports experiencing sever e exhaustion and exacerbated pain from neuromuscular injuries in the neck, back, and joints when off testosterone. - The patient had a negative experience with a urologist, Dr. Correia, and wishes to see a different provider for testosterone management. - There is a long-standing history of pr ostate issues, managed for many years with finasteride and doxazosin. - The patient experienced weight gain fr om approximately 221 to 250 lbs during the pandemic and has since lost weight with the use of Ozempic, with a recent weight of about 207 lbs. Social History - The patient is retired. 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 - Physical activity decreased during the COVID-19 pandemic. Results - Labs: No recent PSA results are availa ble in the system. [facility] Medical History Constipation Skin lesion CKD stage 3a, GFR 45-59 ml/min ANNALISA (acute kidney injury) Hypogonadism male Elevated triglycerides with high cholesterol Hyperlipidemia LDL goal <100 Cerumen impaction Low testosterone Chronic constipation Establishing care with new doctor, encounter for Heart murmur Chronic kidney disease Chronic sinus bradycardia Cataract Retinopathy Glaucoma, narrow-angle Hypertension Hypercholesterolemia Diabetes mellitus Surgical History History of colonoscopy Family History Mother No problems noted. Father Diabetes Cardiovascular disease Heart problem Social History Housing: House Alcohol intake: current Alcohol intake frequency: does not drink Patient Tobacco Use Status: Former Tobacco user service: No Current occupational status: retired Cognitive needs: No Hearing needs: No Vision needs: No Questionnaire PHQ-9 Over the last 2 weeks, how often have you been bothered by any of the following problems? 1. Little interest or pleasure in doing things: not at all 2. Feeling down, depressed, or hopeless: not at all 3. Trouble falling or staying asleep, or sleeping too much: not at all 4. Feeling tired or having little energy: not at all 5. Poor appetite or overeating: not at all 6. Feeling bad about yourself - or that you are a failure or have let yourself or your family down: not at all 7. Trouble concentrating on things, such as reading the newspaper or watching television: not at all 8. Moving or speaking so slowly that other people could have noticed. Or the opposite - being so fidgety or restless that you have been moving around a lot more than usual: not at all 9. Thoughts that you would be better off or of hurting yourself in some way: not at all Total score: 0 Depression Screening Interpretation: Negative Depression Screening Done: Yes 47471 - PHQ-9 Billing: Yes Source: Developed by Drs. Matthew Stein, Jennifer Davis, Deshawn Perrin and colleagues, with an educational monique from [employer]. Thrive Questionnaire Date Thrive assessed: 06/04/24 I am a: Patient What is your living situation today?: I have a steady place to live Within the past 12 months, did the food you bought not last and you didn't have the money to get more?: Never true Within the past 12 months, did you worry whether your food would run out before you got money to buy more?: Never true Do you have trouble paying for medicines?: No Do you have trouble getting transportation to medical appointments?: No Do you have trouble paying your heating and electricity bill?: No Do you have trouble taking care of your child, family member or friend?: No Do you have trouble with day-to-day activities such as bathing, preparing meals, shopping, managing finances, etc.?: No Are you currently unemployed and looking for a job?: No Are you interested in more education?: No Please select the resources that you would like help with: None THRIVE Score: 0 AUDIT C Alcohol Use Questionnaire (AUDIT-C) 1. How often do you have a drink containing alcohol?: Never 3. How often do you have six or more drinks on one occasion?: Never Total Score: 0 Score Reviewed/Action Taken: No CHELLY-7 AMB Questionnaire CHELLY-7 Date CHELLY - 7 assessed: 06/04/24 Feeling nervous, anxious, or on edge: 0 = Not at all Not being able to stop or control worryin = Not at all Worrying too much about different things: 0 = Not at all Trouble relaxin = Not at all Being so restless that it is hard to sit still: 0 = Not at all Becoming easily annoyed or irritable: 0 = Not at all Feeling afraid as if something awful might happen: 0 = Not at all Total CHELLY-7 score (0-4 normal; 5-9 mild; 10-14 moderate; 15-21 severe): 0 Source: Developed by Drs. Matthew Stein, Jennifer Davis, Deshawn Perrin and colleagues, with an educational monique from [employer]. CHELLY-7 Assessment Billing CHELLY-7 Assessment Tool: CHELLY-7 Assessment 99529 Review of Systems Narrative Review of Systems - Constitutional: Reports fatigue while on rosuvastatin, which resolved upon discontinuation. Reports severe exhaustion if not taking testosterone. - Cardiovascular: Reports a known congenital heart murmur, aortic stenosis, and possible arterial blockages in the legs. - Musculoskeletal: Reports a history of joint pain severe enough to stop bodybuilding, as well as neck, back, and joint injuries with pain that escalates without testosterone. - Genitourinary: Reports a long history of prostate issues. - Neurological: Reports sedation with 8 mg of doxazosin. Physical exam (Primary Care) Vital Signs: Last Vital Signs Temp 97.6 F 01/13/25 10:51 Pulse 60 01/13/25 10:51 Resp 14 01/13/25 10:51 BP 140/63 H 01/13/25 10:51 Pulse Ox 98 01/13/25 10:51 Oxygen Delivery Method Room Air 01/13/25 10:51 BMI result Body Mass Index 33.6 Tobacco/Smoking Status: Tobacco use Status Tobacco use date assessed 06/04/24 01/13/25 10:52 Patient Tobacco Use Status Former Tobacco user 01/13/25 10:52 PHQ-9: PHQ-9 Score PHQ-9: Total score 0 01/13/25 11:33 Depression Screening Interpretation: Negative Thrive Assessment: Date of Thrive Assessment Date Thrive assessed 06/04/24 01/13/25 10:52 Narrative Physical Exam General: Cooperative and healthy appearing Nutritional Appearance: Well nourished Orientation/consciousness: Patient oriented x3 Limitations: No limitations Head: Normal to inspection General: Appearance normal, both eyes and all related structures Neck: Normal visual inspection Chest: Normal palpation of entire chest wall Respiratory: Normal respiratory effort Neurology: Patient oriented x3 Coding Level of Care Code Est Pt Level 4 (84546) Diagnoses Hypogonadism male E29.1 Additional Codes CHELLY-7 Assessment Billing - CHELLY-7 Assessment Tool: CHELLY-7 Assessment 25113 ([id number]) PHQ-9 - 36326 - PHQ-9 Billing: Yes ([id number]) Assessment & Plan Assessment & Plan (1) Hypogonadism male: Code(s): E29.1 - Testicular hypofunction Category: Medical Plan Plan - Will change the doxazosin prescription to 4 mg once daily to avoid the sedation the patient experiences with the 8 mg dose. - The patient's decision to stop taking rosuvastatin due to side effects is acknowledged. - Will order a PSA lab test for screening. - Will place a referral to a urologist at a different practice for evaluation and management of testosterone replacement therapy, as continued refills require urologic oversight for a diagnosis such as hypogonadism. - Recommended follow-up in the office in 6 months. Discussion Notes I reviewed the patient's medications and discussed the side effects of sedation with doxazosin 8 mg. I will change the prescription to 4 mg daily. I acknowledged the patient's decision to discontinue rosuvastatin due to side effects, despite the patient's cardiac history. I explained that for continued testosterone replacement therapy, an evaluation by a urologist is necessary to establish a diagnosis like hypogonadism, as we are reluctant to prescribe it otherwise. Given the patient's negative experience with a previous urologist, I will make a referral to a completely different office. I also ordered a PSA blood test to be done and advised the patient to follow up in six months. Patient Instructions - Your prescription for doxazosin will be changed to a 4 mg tablet. Please take one tablet by mouth once a day. - We have noted your decision to stop taking your cholesterol medication, rosuvastatin. - For continued refills of your testosterone, you will need to see a urologist. - We will make a referral to a new urology office for you. - Please go to the lab to have a PSA blood test done. You can go to the hospital lab. - Please schedule a follow-up visit to see me in six months. Orders: Orders PSA,Total (Free>4and<10) Today E29.1 - Testicular hypofunction Medications: Changed From doxazosin 4 mg (1/2 x 8 mg) PO QPM 30 days 15 tabs 3RF E29.1 - Testicular hypofunction To doxazosin 4 mg PO QPM 90 tabs 1RF 90 days E29.1 - Testicular hypofunction
--- OUTSIDE RECORDS SUMMARY | 2025-01-13 12:39 | XMS_ITS | Clinical Summary ---
Author Organization [facility] Address [address] [address] Phone Care Team Providers Care Parking Manager Name Role Phone Unknown, Unknown Primary Care [...] EDT) SODIUM 139 133 - 146 mmol/L [facility] POTASSIUM 4.4 3.3 - 5.1 mmol/L [facility] CHLORIDE 104 96 - 108 mmol/L [facility] CO2 21 21 - 35 mmol/L [facility] BUN 14 6 - 19 mg/dL [facility] CREATININE 1.30 0.5 - 1.5 mg/dL [facility] GLUCOSE 103(H) 70 - 99 mg/dL [facility] ALBUMIN 4.6 3.9 - 4.8 g/dL [facility] TOTAL PROTEIN 7.8 6.5 - 8.0 g/dL [facility] CALCIUM 9.5 8.4 - 10.3 mg/dL [facility] ALKALINE PHOSPHATASE 76 39 - 117 U/L [facility] TOTAL BILIRUBIN 0.2 0.0 - 1.2 mg/dL [facility] Comment: Results from certain multiple myeloma patients may show a positive bias in recovery. Not all multiple myeloma patients show the bias and severity of the bias may vary between patients. In very rare cases, gammopathy, in particular type IgM (Waldenstrom's macroglobulinemia), may cause unreliable results. AST 20 0 - 37 U/L [facility] ALT 26 0 - 40 U/L [facility] GLOBULIN 3.2 1 - 4.8 g/dL [facility] EGFR 55(L) >59 mL/min/1.7 3m2 [facility] Comment:If patient is black, multiply result by 1.159. Estimated glomerular filtration rate calculated using the CKD-EPI equation. ANION GAP 18 10 - 20 mmol/L [facility] Blood 05/13/2018 3:32 PM EDT 05/13/2018 3:35 PM EDT Erik Barbosa MD LAB BLOOD BKR ORDERABLES F inal Result Performing Organization Address [facility] Co de Phone Number [address] [address] * (ABNORMAL) Lipid panel (05/13/2018 3:32 PM EDT) HDL 43 mg/dL [facility] Comment: Interpretation <40 mg/dL: Low HDL cholesterol (major risk factor for CHD) Greater than or equal to 60 mg/dL: High HDL cholesterol ( negative risk factor for CHD) HDL - cholesterol is affected by a number of factors, e.g. smoking, excerise, hormones, sex and age. CHOLESTEROL 253(H) 0 - 240 mg/dL [facility] TRIGLYCERIDES 211(H) 30 - 160 mg/dL [facility] LDL 168(H) 50 - 129 mg/dL [facility] Comment: LDL levels in terms of risk for coronary heart disease: <100 mg/dL: Optimal 100-129 mg/dL: Near or above optimal 130-159 mg/dL: Borderline high 160-189 mg/dL: High >190 mg/dL: Very High CARDIAC RISK RATIO 5.9(H) 3.4 - 5.0 C [facility] Blood 05/13/2018 3:32 PM EDT 05/13/2018 3:35 PM EDT Erik Barbosa MD LAB BLOOD BKR ORDERABLES F inal Result Performing Organization Address [facility] Co de Phone Number [address] [address] from Last 3 Months or Most Recently Relevant to Health Maintenance Insurance [employer] [place] [employer] [place] [employer] [place] [id number] [place] [place] [address] MEDICARE REPLACEMENT [place] [employer] [phone] [employer] [place] [employer] [place] [place] [employer] Care Teams Parking Manager Relationship Specialty Start Date End Date Unknown, Unknown, PCP - General 01/28/20 Additional Source Comments The information contained in this document represents components of the legal health record. It is not the complete legal health record.[facility]
== END 2025-01-13 11:58 | disposition home or self-care (01) ==
LOC: HO.HMCSH 10:48
PROVIDERS: PCP Internal Medicine; Visit Provider Internal Medicine
DX: E29.1 Testicular hypofunction (principal)

== ENCOUNTER 2025-01-13 10:48 | Outpatient (REF) | payer MEDICARE, SELFPAY ==
[2025-01-13 13:34] LABS: PSA,Total (Free>4and<10) 0.33 ng/mL (0.00-4.00)
== END 2025-01-13 10:49 | disposition home or self-care (01) ==
LOC: HO.LAB 10:48
PROVIDERS: PCP Internal Medicine; Visit Provider Internal Medicine
DX: Z12.5 Encounter for screening for malignant neoplasm of prostate (principal); E29.1 Testicular hypofunction
CPT/HCPCS: 36415; 84153; 96127; 99212

== ENCOUNTER → 2025-01-27 11:06 | Outpatient (REF) | payer MEDICARE, SELFPAY ==
--- OUTSIDE RECORDS SUMMARY | 2025-01-27 14:38 | XMS_ITS | Clinical Summary ---
Author Organization [facility] Address [address] [address] Phone Care Team Providers Care Cold Strip Roller Name Role Phone Unknown, Unknown Primary Care [...] ORDERABLES F inal Result Performing Organization Address [facility] [address] [facility] Co de Phone Number [address] [address] * (ABNORMAL) Lipid panel (05/13/2018 3:32 PM [...] RISK RATIO 5.9(H) 3.4 - 5.0 C [facility] Blood 05/13/2018 3:32 PM EDT 05/13/2018 3:35 PM EDT Erik Barbosa MD LAB BLOOD BKR ORDERABLES F inal Result Performing Organization Address [facility] [address]/[facility] Co de Phone Number [address] [address] from Last 3 Months or Most Recently Relevant to Health Maintenance Insurance [place] [employer] [place] [employer] [place] [employer] [place] [id number] [address] [place] [address] [address] MEDICARE REPLACEMENT [place] [employer] [phone] [employer] [employer] [place] [employer] Care Teams Cold Strip Roller Relationship Specialty Start Date End Date Unknown, Unknown, PCP - General 01/28/20 Additional Source Comments The information contained in this document represents components of the legal health record. It is not the complete legal health record[facility]
== END ==
LOC: HO.CARD 11:06
PROVIDERS: PCP Internal Medicine; Visit Provider Internal Medicine Cardiovascular Disease
DX: R00.2 Palpitations (principal)
CPT/HCPCS: 93242

== ENCOUNTER → 2025-01-27 11:09 | Outpatient (BNV) | payer MEDICARE, SELFPAY | PROVIDERS: PCP Internal Medicine; Visit Provider Internal Medicine | DX: R00.2 Palpitations (principal) | CPT/HCPCS: 93244 ==